=== PATIENT | female | born 1960 | race Caucasian/White ===

== ENCOUNTER → 2021-10-02 | Outpatient (CLI) | payer BC, SELFPAY ==
--- NOTE | 2021-10-02 | FLU_PTH ---
PATIENT: CAT POSEY [facility]: [facility] U#:[id number] AGE/SX: 61/F ROOM: RE10/02/[address]: Dr. Chris Clay MD : 1960 BED: DIS: 10/02/2021 SPEC #: [id number] RECD: 10/02/21 13:34 STATUS: MILADYS REQ #: [id number] ALLY: 10/02/21 00:[address]: Paul Sabillon DEPT: CYTOLOGY RECD BY: Basil Turner ENTERED: 10/02/21 13:34 SP TYPE: Fluid OTHR DR: Dr. Chris Clay MD Tissues: A - Thyroid gland, NOS B - Thyroid gland, NOS Procedures: Special Stain Group II Surgery Specimen Level IV Cytospin Fluid Comments: @ Ordering doctor for SSII edited from to DR.DPEABO Wesley by SHERI at 10/02/21 1406 @ Ordering doctor for SUIV edited from to DR.DPEABO Wesley by SHERI at 10/02/21 1406 @ Ordering doctor for CYSPIN edited from to DR.DPEABO Wesley by SHERI at 10/02/21 1406 @ Submitting doctor edited from to DR.DPEABO Wesley by SHERI at 10/02/21 1406 HEADER OPERATION: Fine needle aspiration left thyroid nodule PRE-OP DIAGNOSIS: Left thyroid nodule TISSUE SUBMITTED: A ? FNA left thyroid fluid, B - FNA left thyroid x12 slides DIAGNOSIS CYTOLOGY A. Fine needle aspiration, left thyroid fluid (cytospin and cell block): Negative for malignant cells. See comment. B. Fine needle aspiration, left thyroid nodule (smears): Adequate for evaluation. Negative, consistent with benign follicular nodule. Chronic inflammation. AM:segundo 10/03/2021 COMMENT A. The specimen contains mostly blood with scattered rare degenerative follicular cells. CYTOLOGY STUDY Slides are reviewed. CYTOLOGY GROSS A - Received is 30 ml of pink cloudy fluid labeled with the patient's name and and designated per the requisition as left thyroid nodule. Submitted for cytology preparation including cell block. B - Received are 12 smears labeled with the patient's name and designated per the requisition as left thyroid nodule. Submitted for staining. / segundo 10/02/21 TC:3 CPT: 72125, 73653, 62114
== END | disposition home or self-care (01) ==
PROVIDERS: Referring Provider Family Medicine; Visit Provider Family Medicine
DX: E04.1 Nontoxic single thyroid nodule (principal)
CPT/HCPCS: 88108; 88305; 88313

== ENCOUNTER → 2022-05-13 | Outpatient (CLI) | payer BC, SELFPAY ==
--- NOTE | 2022-05-13 10:57 | MRI_ITS ---
EXAM: MR HEAD WITHOUT AND WITH INTRAVENOUS CONTRAST, INTERNAL AUDITORY CANAL PROTOCOL CLINICAL INDICATION: LEFT TINNITUS,HEARING LOSS, fullness, pain TECHNIQUE: Multiplanar and multisequence MR images of the internal auditory canal were obtained without and with intravenous contrast. This report was created using [employer] technology. CONTRAST: IV 15ml dotarem COMPARISON: None. FINDINGS: CRANIAL NERVES: Unremarkable. No mass. No abnormal enhancement. COCHLEA AND SEMICIRCULAR CANALS: Unremarkable. CEREBELLOPONTINE ANGLES: Unremarkable. No mass. BRAIN AND EXTRA-AXIAL SPACES: Unremarkable as visualized. No intra- or extra-axial hemorrhage. No intracranial mass or mass effect. There is preservation of the saldana/white matter interface. Posterior fossa structures are unremarkable. Ventricles are appropriate for age. No hydrocephalus. Basal cisterns are patent. No abnormal contrast enhancement. BONES/JOINTS: Unremarkable. No discrete lytic or blastic abnormalities. SINUSES: Unremarkable as visualized. Clear. MASTOID AIR CELLS: Unremarkable as visualized. Clear. ORBITS: Unremarkable as visualized. Both globes, extraocular muscles, optic nerves and retrobulbar fat appear unremarkable. MRI/Brain W/WO Contrast IMPRESSION: Unremarkable MRI of the internal auditory canal. Electronically Signed: Carlos Johnson MD at 12:32 EDT ,
[2022-05-13 11:15] LABS: CREATININE FINGERSTICK < 0.9 mg/dL (0.55-1.02); EGFR FINGERSTICK > 60.0000 mL/min (>60)
== END | disposition home or self-care (01) ==
PROVIDERS: PCP Family Medicine; Referring Provider Otolaryngology; Visit Provider Otolaryngology
DX: H93.12 Tinnitus, left ear (principal); H91.92 Unspecified hearing loss, left ear
CPT/HCPCS: 70553; A9575

== ENCOUNTER 2023-08-11 11:01 | Emergency (ER) | payer BC, SELFPAY ==
[2023-08-11 11:03] VITALS: BP 148/85; PULSE 73; RESP 14; TEMP 36.4; O2SAT 100; BMI 24.7
--- NOTE | 2023-08-11 11:32 | CT_ITS ---
STUDY: CTA CHEST REASON FOR EXAM: Female, 63 years old. COPD. Hypertension. RADIATION DOSAGE (If Supplied By Facility): CTDIvol = ( 9.33 ) mGy, DLP = ( 298.31 ) mGycm TECHNIQUE: The examination was performed with the intravenous administration of IV 100mL Isovue-370. Post-processing of the angiographic images was performed, with multiplanar reformation and 3D reconstruction. Individualized dose optimization techniques were used for this CT. COMPARISON: None. FINDINGS: Normal enhancement of the main pulmonary artery and right and left pulmonary arteries. Normal enhancement of the bilateral peripheral pulmonary arteries. There is no demonstrated pulmonary embolism. Normal thoracic aorta and visualized great vessels. There is no demonstrated aortic dissection. There are calcifications of the coronary arteries. Normal mediastinum. Normal hilar regions. Normal visualized trachea and bronchi. The lungs are well expanded. Increased markings with areas of confluence in both lung apices to just above the apical scarring more prominent on the right side. Normal pleura. Normal chest wall structures. There are degenerative changes of thoracic spine. Fatty infiltration of the liver. CT/CTA Chest W/WO Contrast IMPRESSION: Scarring at both lung apices worse in the right lung apex. Electronically Signed: Luis Lebron MD at 12:59 EDT ,
--- NOTE | 2023-08-11 11:33 | ED.VIS.CHEST ---
HPI History of Present Illness Chief Complaint: Chest Other Narrative Narrative: 63-year-old female extensive long history presents with bilateral chest pain and lung pain all over, that she has had for the last few weeks. She states her symptoms began the end of June, few weeks ago. Her father came home with viral pneumonia, and she caught that. She has been coughing and having pain in her bilateral lungs worse with exertion. She has had past medical history of thoracotomy secondary to pneumothoraces back in the 1970s. She had chronic pain since then. However, she now feels as if there is glue caught between the pleural space of her lungs and her rib cage. Sometimes there is sharp pain of the time its burning pain. It is gotten progressively worse over the last week, and started 3 weeks ago. She denies any symptoms of pneumonia such as fever or chills, she does not really have a cough. No nausea or vomiting, no leg swelling, no diaphoresis. 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 History of migraine History of pleurisy Hyperlipidemia Hypopotassemia Hypothyroidism Meniere disease Rosacea SVT (supraventricular tachycardia) Tietze's disease Type 2 diabetes mellitus without complication Home Medications albuterol sulfate 90 mcg/actuation breath activated powder inhaler (ProAir RespiClick) 2 inh inhalation BID PRN 01/16/22 [History Last Taken Unknown] celecoxib 200 mg capsule (Celebrex) 200 mg PO BID 01/16/22 [History Last Taken Unknown] cholecalciferol (vitamin D3) 25 mcg (1,000 unit) tablet 25 mcg PO DAILY 01/16/22 [History Last Taken Unknown] empagliflozin 10 mg tablet (Jardiance) 10 mg PO QAM 01/16/22 [History Last Taken Unknown] gabapentin 800 mg tablet 800 mg PO TID 01/16/22 [History Last Taken Unknown] levothyroxine 88 mcg tablet 44 mcg PO 2XW 01/16/22 [History Last Taken Unknown] levothyroxine 88 mcg tablet 88 mcg PO SUMOWEFRSA 01/16/22 [History Last Taken Unknown] meclizine 12.5 mg tablet 12.5 mg PO TID PRN 01/16/22 [History Last Taken Unknown] metformin 500 mg tablet,extended release 24 hr 1,000 mg PO BID 01/16/22 [History Last Taken Unknown] knesehutzezw-sjdvxrxw-iofpueq-folic acid 400 mcg-vit K1 20 mcg tablet (One-A-Day Women's 50 Plus) 1 tab PO DAILY 01/16/22 [History Last Taken Unknown] nadolol 20 mg tablet 20 mg PO DAILY 01/16/22 [History Last Taken Unknown] pantoprazole 40 mg tablet,delayed release 40 mg PO BID 01/16/22 [History Last Taken Unknown] potassium chloride 10 mEq tablet,extended release 10 meq PO DAILY 01/16/22 [History Last Taken Unknown] prednisone 20 mg tablet 20 mg PO DAILY 01/16/22 [History Last Taken Unknown] promethazine 25 mg tablet 25 mg PO Q4H PRN 01/16/22 [History Last Taken Unknown] sitagliptin phosphate 100 mg tablet (Januvia) 100 mg PO DAILY 01/16/22 [History Last Taken Unknown] tramadol 50 mg tablet 50 mg PO DAILY PRN 01/16/22 [History Last Taken Unknown] triamterene 37.5 mg-hydrochlorothiazide 25 mg tablet 1 tab PO DAILY 01/16/22 [History Last Taken Unknown] baclofen 10 mg tablet 10 mg PO BID 01/23/22 [History Last Taken Unknown] ferrous gluconate 324 mg (37.5 mg iron) tablet 324 mg PO DAILY 01/23/22 [History Last Taken Unknown] rosuvastatin 40 mg tablet 40 mg PO DAILY 01/23/22 [History Last Taken Unknown] Allergy/AdvReac Type Severity Reaction Status Date / Time atorvastatin Allergy Severe myalgia, Verified 08/11/23 11:02 esophageal spasm lisinopril Allergy Severe swelling, Verified 08/11/23 11:02 ? angioedema diclofenac [From Voltaren] Allergy Intermediate Vomiting Verified 08/11/23 11:02 doxycycline Allergy Intermediate affected Verified 08/11/23 11:02 joints fluticasone Allergy Intermediate leg cramps Verified 08/11/23 11:02 [From Advair Diskus] meloxicam Allergy Intermediate nausea Verified 08/11/23 11:02 metronidazole [From Flagyl] Allergy Intermediate affected Verified 08/11/23 11:02 joints nitrofurantoin Allergy Intermediate hives Verified 08/11/23 11:02 [From Macrobid] pregabalin [From Lyrica] Allergy Intermediate dizziness, Verified 08/11/23 11:02 mental status change rofecoxib [From Vioxx] Allergy Intermediate Swelling Verified 08/11/23 11:02 salmeterol Allergy Intermediate leg cramps Verified 08/11/23 11:02 [From Advair Diskus] tramadol [From Ultram] Allergy Intermediate GI upset Verified 08/11/23 11:02 adhesive Allergy Unknown unknown Verified 08/11/23 11:02 Family History Mother Heart disease CVA (cerebral vascular accident) Hypertension Cancer Lung cancer with mets to brain Father Heart disease Cancer skin Hypertension Grandfather Diabetes Grandmother Cancer Ovarian Surgical History History of bunionectomy History of colonoscopy History of dilatation and curettage History of esophagogastroduodenoscopy History of hand surgery History of lobectomy of thyroid (01/06/08) History of lung surgery (1975) History of partial mastectomy of right breast (02/08/03) History of tonsillectomy (1981) History of tubal ligation Social History Smoking Status: Never smoker alcohol intake: never substance use type: does not use ROS ROS ED ROS Narrative Constitutional: No fever, no chills. HEENT: No sore throat. No neck pain. No loss of vision. No rhinorrhea. Cardiovascular: Bilateral chest pain. No palpitations. No pedal edema. Respiratory: No cough currently, no shortness of breath. Abdominal: No abdominal pain. No nausea. No vomiting. Genitourinary: No dysuria. No hematuria. Musculoskeletal: No myalgias. No arthralgias. Neurologic: No headaches. No dizziness. No lightheadedness. Skin: No rash. No change in color. Psychiatric: No depression. No anxiety. EXAM Physical Exam Narrative Exam Narrative: Afebrile. Vital signs noted. HEENT: Normocephalic. Atraumatic. PERRL, EOMI. Neck soft and supple. No point tenderness or step off. Cardiovascular: Regular rate and rhythm. No murmurs, rubs, or gallops appreciated. Respiratory: No tachypnea. Lungs clear to auscultation bilaterally. Gastrointestinal: Abdomen soft, nontender, with normoactive bowel sounds. No rebound or guarding. Neurological: Awake. Alert. Nonfocal, nonlateralizing. Skin: No rash. Normal color. No pallor. Musculoskeletal: No pedal edema. Full range of motion extremities. Const Vital Signs: 08/11/23 11:03 08/11/23 11:12 08/11/23 11:12 Temperature 97.6 F L Temperature Source Oral Pulse Rate 73 Respiratory Rate 14 Respiratory Effort Normal Non-Labored Normal Non-Labored Respiratory Pattern Normal Blood Pressure 148/85 H Blood Pressure Mean 106 Pulse Ox 100 Oxygen Delivery Method Room Air 08/11/23 11:47 Temperature Temperature Source Pulse Rate Respiratory Rate Respiratory Effort Respiratory Pattern Blood Pressure Blood Pressure Mean Pulse Ox 97 Oxygen Delivery Method Room Air MDM MDM MDM Narrative Medical decision making narrative: Her pulse ox is 100% on room air. She states she had pain in her back as well. In the differential diagnosis is pneumothorax versus aortic dissection versus ACS versus pneumonia. I have lower suspicion for pneumonia as it is bilateral, and she states does not have fever. EKG was obtained and interpreted by myself independently as normal sinus rhythm at 71 bpm without ectopy or acute ST changes. No STEMI. I reviewed her laboratory work and she has slightly elevated white count of 11.9 which I think is nonspecific, hemoglobin normal at 13.3 with hematocrit 41.9. Platelet count normal at 287. BMP shows normal sodium of 137 with potassium 3.7, BUN of 32 and creatinine slightly elevated at 1.39. Glucose is elevated at 226 consistent with diabetes, but she has a normal anion gap of 7, but I am not concerned for diabetic ketoacidosis. High-sensitivity troponin is less than 3 and her pain has been ongoing for days if not weeks. Of significance was the CT of the chest/CTA which was obtained and I reviewed the radiology report which shows bilateral apical lung scarring right greater than left but no pulmonary embolism or acute process. There is normal pleura and no effusion. At this point in time, given her negative CT scan, negative cardiac enzymes, and after administration of morphine, she states she feels the same. I offered to write her a short prescription for narcotic pain medication but she states it is ineffective. I do not feel she requires observation at this time. She will follow-up with her primary care provider. Return instructions to the emergency department were reviewed. Disposition is discharged home in stable condition. History & Record Review Discussion w/independent historian: Patient Additional record(s) reviewed:: Prior outpatient record and Prior ED visit Lab Data Attestation: I reviewed the patient's lab results. Labs: Laboratory Results - last 24 hr 08/11/23 11:25 WBC 11.9 H RBC 4.46 Hgb 13.3 Hct 41.9 MCV 93.9 MCH 29.8 MCHC 31.7 L RDW Std Deviation 49.1 H RDW Coeff of Ra 14.2 Plt Count 287 MPV 10.6 Immature Gran % (Auto) 0.500 Neut % (Auto) 75.8 H Lymph % (Auto) 15.6 L [place] % (Auto) 7.5 Eos % (Auto) 0.3 Baso % (Auto) 0.3 Absolute Neuts (auto) 9.0 H Absolute Lymphs (auto) 1.86 Nucleated RBC % 0 Sodium 137 Potassium 3.7 Chloride 99 Carbon Dioxide 31.0 Anion Gap 7 BUN 32 H Creatinine 1.39 H Estim Creat Clear Calc 41.25 Est GFR (MDRD) Af Amer 49 L Est GFR (MDRD) Non-Af 41 L BUN/Creatinine Ratio 23.0 H Glucose 226 H Calcium 9.6 Troponin I High Sens < 3 L Radiography Diagnostic Testing: Clinical Impression(s) from Imaging Studies Chest CTA 08/11/23 11:32 IMPRESSION: Scarring at both lung apices worse in the right lung apex. Electronically Signed: Luis Lebron MD at 12:59 EDT , Differential Diagnosis Chest pain/SOB: ACS ACS: Positive for no evidence of ACS based on cardiac biomarkers and EKG without ischemia, pneumothorax Reason(s) pneumothorax less likely: Positive for bilateral breath sounds and SIDE GUIDER withhout PTX (CT scan), pneumonia and aortic dissection Reason(s) Aortic dissection less likely:: Positive for normal vascular exam, normal neurological exam, pain not sudden onset and no ripping/tearing pain Discharge Plan Triage Chief Complaint: Chest Other ED Provider: Evnes Daniel Dx/Rx/DC Orders Clinical Impression: Pain aggravated by breathing, Chest pain Instructions: ED Chest Pain, Uncertain Cause, ED Pain, Acute, Uncertain Cause, ED Pleurisy Prescriptions: No Action baclofen 10 mg tablet 10 mg PO BID rosuvastatin 40 mg tablet 40 mg PO DAILY ferrous gluconate 324 mg (37.5 mg iron) tablet 324 mg PO DAILY gabapentin 800 mg tablet 800 mg PO TID tramadol 50 mg tablet 50 mg PO DAILY PRN celecoxib [Celebrex] 200 mg capsule 200 mg PO BID Jardiance 10 mg tablet 10 mg PO QAM potassium chloride 10 mEq tablet extended release 10 meq PO DAILY levothyroxine 88 mcg tablet 44 mcg PO 2XW Rx Instructions: Friday and levothyroxine 88 mcg tablet 88 mcg PO SUMOWEFR pantoprazole 40 mg tablet,delayed release (DR/EC) 40 mg PO BID prednisone 20 mg tablet 20 mg PO DAILY nadolol 20 mg tablet 20 mg PO DAILY Januvia 100 mg tablet 100 mg PO DAILY metformin 500 mg tablet extended release 24 hr 1,000 mg PO BID promethazine 25 mg tablet 25 mg PO Q4H PRN cholecalciferol (vitamin D3) 25 mcg (1,000 unit) tablet 25 mcg PO DAILY meclizine 12.5 mg tablet 12.5 mg PO TID PRN ProAir RespiClick 90 mcg/actuation aerosol powdr breath activated 2 inh inhalation BID PRN One-A-Day Women's 50 Plus 400-20 mcg tablet 1 tab PO DAILY triamterene-hydrochlorothiazid 37.5-25 mg tablet 1 tab PO DAILY Primary Care Provider: Chris Clay Referrals: Chris Clay MD [Primary Care Provider] - As soon as possible Disposition Disposition: Home, Self Care
[2023-08-11 11:47] VITALS: O2SAT 97
[2023-08-11] MEDS: 0.9% Normal Saline (1000mL) 1,000 ML 1000 ML IV (12:03)
[2023-08-11 12:06] LABS: Absolute Lymphocyte Count 1.86 X10^3/uL (0.83-4.51); Basophil# 0.04 X10^3/uL; Basophil% 0.3 % (0-1); Eosinophil# 0.03 X10^3/uL; Eosinophils% 0.3 % (0-5); Hematocrit 41.9 % (37-47); Hemoglobin 13.3 g/dL (12.0-15.0); Lymphocyte # 1.86 X10^3/ul (0.83-4.51); Lymphocyte % 15.6 % (19-41); Mean Corp Hgb Conc 31.7 g/dL (32-36); Mean Corpuscular Hgb 29.8 pg (27.0-32.0); Mean Corpuscular Volume 93.9 fL (81-99); Mean Platelet Vol. 10.6 fl (6.2-12.0); Monocyte# 0.89 X10^3/uL; Monocyte% 7.5 % (0-10); NRBC Flagged by Analyzer 0 % (0-5); Neutrophil # 9.01 X10^3/uL (2.7-7.7); Neutrophil % 75.8 % (47-70); Platelet Count 287 K/mm3 (150-450); RBC Distribution Width CV 14.2 % (11.6-14.6); RBC Distribution Width SD 49.1 fl (35.1-43.9); Red Blood Count 4.46 M/mm3 (4.2-5.4); White Blood Count 11.9 K/mm3 (4.4-11.0)
[2023-08-11 12:23] LABS: Anion Gap 7 (5-15); BUN 32 mg/dL (7-18); Calcium,Total 9.6 mg/dL (8.5-10.1); Chloride 99 mmol/L (98-107); Creatinine, Serum 1.39 mg/dL (0.55-1.02); EST Glomerular Filtration Rate 41 mL/min (>60); Est Glom Filt Rate - Afr Amer 49 mL/min (>60); Estimated Creatinine Clearance 41.25 ml/min; Glucose 226 mg/dL (74-106); Potassium 3.7 mmol/L (3.5-5.1); Sodium Level 137 mmol/L (136-145); Troponin-I HS < 3 pg/mL (3.0-54.0)
[2023-08-11 13:32] VITALS: BP 134/78; PULSE 72; RESP 16; O2SAT 98
== END 2023-08-11 13:33 | disposition home or self-care (01) ==
PROVIDERS: Emergency Provider Emergency Medicine; PCP Family Medicine; Visit Provider Emergency Medicine
DX: R07.1 Chest pain on breathing (principal); J44.9 Chronic obstructive pulmonary disease, unspecified; E11.65 Type 2 diabetes mellitus with hyperglycemia; E78.5 Hyperlipidemia, unspecified; G89.29 Other chronic pain; I10 Essential (primary) hypertension
CPT/HCPCS: 71275; 80048; 84484; 85025; 93005; 96361; 96374; 99285; Q9967; A4216

== ENCOUNTER 2024-08-17 16:17 | Emergency (ER) | payer MEDICARE, SELFPAY ==
[2024-08-17 16:21] VITALS: BP 122/79; PULSE 79; RESP 18; TEMP 35.5; O2SAT 98
[2024-08-17 16:50] VITALS: BP 123/83; PULSE 78; RESP 16; O2SAT 98
--- NOTE | 2024-08-17 17:00 | EKG12_ITS ---
Test Reason : SYNCOPE Blood Pressure : / mmHG Vent. Rate : 078 BPM Atrial Rate : 078 BPM P-R Int : 122 ms QRS Dur : 090 ms QT Int : 386 ms P-R-T Axes : 049 -03 022 degrees QTc Int : 440 ms Normal sinus rhythm Normal ECG Confirmed by SAV BOWLES, RIAN ([id number]), continuity editor ISHA MCCARTHY ([id number]) on 08/19/2024 1:19:02 PM Referred By: TB/AK Confirmed By:RIAN ANG MD
--- NOTE | 2024-08-17 17:09 | CT_ITS ---
STUDY: CT BRAIN WITHOUT CONTRAST REASON FOR EXAM: Female, 64 years old. Trauma RADIATION DOSAGE (If Supplied By Facility): CTDIvol = ( 47.06 ) mGy, DLP = ( 925.62 ) mGycm TECHNIQUE: Transaxial CT imaging of the brain was performed without administration of intravenous contrast material. Individualized dose optimization techniques were used for this CT. COMPARISON: No relevant priors. FINDINGS: Normal soft tissue structures. Normal calvarium. Normal size ventricles and extra-axial spaces for the patient''s age. Normal white matter tracts of the cerebral hemispheres. Normal basal ganglia and thalami. Normal brainstem. Normal cerebellum. There is no intracranial hemorrhage. There are no findings of an acute ischemic infarction. Normal visualized paranasal sinuses. Postsurgical changes of the orbits CT/Brain/Head without Contrast IMPRESSION: Normal unenhanced CT scan of the brain. Electronically Signed: Jose Guadalupe Maier MD at 17:51 EDT ,
--- NOTE | 2024-08-17 17:10 | CT_ITS ---
STUDY: CT CERVICAL SPINE WITHOUT CONTRAST REASON FOR EXAM: Female, 64 years old. Trauma RADIATION DOSAGE (If Supplied By Facility): CTDIvol = ( 16.19 ) mGy, DLP = ( 368.64 ) mGycm TECHNIQUE: High resolution transaxial imaging was performed without contrast material. Sagittal and coronal images were reconstructed. Individualized dose optimization techniques were used for this CT. COMPARISON: None FINDINGS: Normal craniovertebral junction. Normal anterior atlantoaxial articulation. Normal odontoid process. Decreased cervical lordosis possibly secondary to muscle spasm or positioning artifact. Normal vertebral bodies and posterior osseous elements. C2-3: Normal endplates. Normal disc height and morphology. Normal central canal and intervertebral neuroforamina. C3-4: Normal endplates. Normal disc height and morphology. Normal central canal and intervertebral neuroforamina. C4-5: Normal endplates. Normal disc height and morphology. Normal central canal and intervertebral neuroforamina. C5-6: Mild anterior endplate spurring. Normal disc height and morphology. Normal central canal. Moderate left neural foraminal stenosis secondary to bony hypertrophy C6-7: Normal endplates. Normal disc height and morphology. Normal central canal. Moderate to severe left neural foraminal stenosis secondary to bony hypertrophy C7-T1: Normal endplates. Normal disc height and morphology. Normal central canal and intervertebral neuroforamina. Multifocal ossification of the nuchal ligament. CT/Spine Cervical without Contras IMPRESSION: Straightening of the normal curvature and mild spondylosis most severe at C5-6 and C6-7 No acute fracture or subluxation Electronically Signed: Jose Guadalupe Maier MD at 17:53 EDT ,
--- NOTE | 2024-08-17 17:11 | EDS_ITS ---
HPI History of Present Illness Chief Complaint: Syncope Narrative Narrative: Chief complaint and HPI: Syncope. 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 Patient states last Friday while walking at the mall she felt slightly lightheaded and had to sit down. Patient states that this is not uncommon for her with her M?ni?re's disease especially with the change in weather. She states on Friday she walked a couple blocks in which she had increased shortness of breath. She states she thought it was her asthma so she took her inhaler. She states while she was in her backyard talking to family, she became lightheaded, and reportedly had a syncopal episode. It was reported that she hit her head. No seizure-like activity. No postictal state. No bowel or bladder incontinence. Patient saw her developer analyst today because she was having left ankle pain since the syncopal episode in which she was diagnosed with a bimalleolar ankle fracture and placed in a boot. Plan is for surgery soon. Patient had a regular follow-up with her PCP who referred her to the ED for further workup. Patient states since the fall she has been having fogginess in her head which she cannot quite explain. Denies any chest pain. Still having intermittent shortness of breath. Denies lightheadedness currently. Denies any abdominal pain nausea, vomiting, dysuria, diarrhea. States she has been eating and drinking well. Patient denies any aphasia, dysarthria, vision changes, numbness/tingling, neurological deficit, weakness, gait disturbance. Review of systems: See HPI Medications: As listed on the chart Allergies: As listed on the chart PFSH: Per chart Vital signs: As listed on the chart. Reviewed. Physical exam: Gen: A&O x3, NAD Head: Normocephalic, atraumatic Eyes: No sclera icterus, conjunctiva clear, PERRL, EOMI ENT: TMs clear BL, moist mucous membranes, no swelling/lacerations/blood in the mouth or the nares, No nasal septal hematoma, no facial tenderness Neck: Trachea midline, No JVD, Nontender, no carotid bruit CV: RRR, no murmurs, no chest wall TTP Resp: Lungs CTA BL, no w/r/c GI: Abd soft, non-distended, non-tender, no r/r/g Musc: Full ROM, no deformity, no spinal TTP, no cole step-offs, left lower ex tremity in boot Skin: Warm, dry, intact Neuro: Alert, oriented, grossly intact, sensation intact, GCS 15 Psych: Cooperative, appropriate mood and affect [facility] Medical History Asthma COPD (chronic obstructive pulmonary disease) DDD (degenerative disc disease), lumbar Essential hypertension 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 History of migraine History of pleurisy Hyperlipidemia Hypopotassemia Hypothyroidism Meniere disease Rosacea SVT (supraventricular tachycardia) Tietze's disease Type 2 diabetes mellitus without complication Home Medications ?Medication ?Instructions ?Recorded ?Last Taken ?Type albuterol sulfate 90 mcg/actuation 2 inh inhalation BID PRN 01/16/22 Unknown History breath activated powder inhaler (ProAir RespiClick) celecoxib 200 mg capsule (Celebrex) 200 mg PO BID 01/16/22 Unknown History cholecalciferol (vitamin D3) 25 25 mcg PO DAILY 01/16/22 Unknown History mcg (1,000 unit) tablet empagliflozin 10 mg tablet 10 mg PO QAM 01/16/22 Unknown History (Jardiance) gabapentin 800 mg tablet 800 mg PO TID 01/16/22 Unknown History levothyroxine 88 mcg tablet 44 mcg PO 2XW 01/16/22 Unknown History levothyroxine 88 mcg tablet 88 mcg PO SUMOWEFRSA 01/16/22 Unknown History meclizine 12.5 mg tablet 12.5 mg PO TID PRN 01/16/22 Unknown History metformin 500 mg tablet,extended 1,000 mg PO BID 01/16/22 Unknown History release 24 hr llcibpjzhdib-zzmxizod-sopuvhz-folic 1 tab PO DAILY 01/16/22 Unknown History acid 400 mcg-vit K1 20 mcg tablet (One-A-Day Women's 50 Plus) nadolol 20 mg tablet 20 mg PO DAILY 01/16/22 Unknown History pantoprazole 40 mg tablet,delayed 40 mg PO BID 01/16/22 Unknown History release potassium chloride 10 mEq 10 meq PO DAILY 01/16/22 Unknown History tablet,extended release prednisone 20 mg tablet 20 mg PO DAILY 01/16/22 Unknown History promethazine 25 mg tablet 25 mg PO Q4H PRN 01/16/22 Unknown History sitagliptin phosphate 100 mg 100 mg PO DAILY 01/16/22 Unknown History tablet (Januvia) tramadol 50 mg tablet 50 mg PO DAILY PRN 01/16/22 Unknown History triamterene 37.5 1 tab PO DAILY 01/16/22 Unknown History mg-hydrochlorothiazide 25 mg tablet baclofen 10 mg tablet 10 mg PO BID 01/23/22 Unknown History ferrous gluconate 324 mg (37.5 mg 324 mg PO DAILY 01/23/22 Unknown History iron) tablet rosuvastatin 40 mg tablet 40 mg PO DAILY 01/23/22 Unknown History Allergy/AdvReac Type Severity Reaction Status Date / Time atorvastatin Allergy Severe myalgia, Verified 08/17/24 16:21 esophageal spasm lisinopril Allergy Severe swelling, Verified 08/17/24 16:21 ? angioedema diclofenac (From Voltaren) Allergy Intermediate Vomiting Verified 08/17/24 16:21 doxycycline Allergy Intermediate affected Verified 08/17/24 16:21 joints fluticasone (From Advair Allergy Intermediate leg cramps Verified 08/17/24 16:21 Diskus) meloxicam Allergy Intermediate nausea Verified 08/17/24 16:21 metronidazole (From Flagyl) Allergy Intermediate affected Verified 08/17/24 16:21 joints nitrofurantoin (From Allergy Intermediate hives Verified 08/17/24 16:21 Macrobid) pregabalin (From Lyrica) Allergy Intermediate dizziness, Verified 08/17/24 16:21 mental status change rofecoxib (From Vioxx) Allergy Intermediate Swelling Verified 08/17/24 16:21 salmeterol (From Advair Allergy Intermediate leg cramps Verified 08/17/24 16:21 Diskus) tramadol (From Ultram) Allergy Intermediate GI upset Verified 08/17/24 16:21 adhesive Allergy Unknown unknown Verified 08/17/24 16:21 Family History Mother Heart disease CVA (cerebral vascular accident) Hypertension Cancer Lung cancer with mets to brain Father Heart disease Cancer skin Hypertension Grandfather Diabetes Grandmother Cancer Ovarian Surgical History History of bunionectomy History of colonoscopy History of dilatation and curettage History of esophagogastroduodenoscopy History of hand surgery History of lobectomy of thyroid (01/06/08) History of lung surgery (1975) History of partial mastectomy of right breast (02/08/03) History of tonsillectomy (1981) History of tubal ligation Social History Smoking Status: Never smoker alcohol intake: never substance use type: does not use EXAM Physical Exam Const Vital Signs: 08/17/24 16:21 08/17/24 16:50 08/17/24 16:52 Temperature 96 F L Temperature Source Temporal Pulse Rate 79 78 Respiratory Rate 18 16 Respiratory Effort Normal Non-Labored Blood Pressure 122/79 H 123/83 H Blood Pressure Mean 93 96 Pulse Ox 98 98 Oxygen Delivery Method Room Air Room Air 08/17/24 18:24 08/17/24 20:04 08/17/24 20:08 Temperature Temperature Source Pulse Rate 73 72 Respiratory Rate 16 Respiratory Effort Blood Pressure 116/68 116/68 128/79 H Blood Pressure Mean 84 84 95 Pulse Ox 98 Oxygen Delivery Method Room Air 08/17/24 20:39 Temperature 97.2 F L Temperature Source Pulse Rate 75 Respiratory Rate 15 Respiratory Effort Blood Pressure 121/79 H Blood Pressure Mean 93 Pulse Ox 96 Oxygen Delivery Method MDM MDM MDM Narrative Medical decision making narrative: 64-year-old female with history of M?ni?re's disease and asthma presents for evaluation of intermittent lightheadedness with syncopal episode and intermittent shortness of breath. Physical exam unremarkable. Currently asymptomatic. Differential diagnosis includes but is not limited to M?ni?re's disease, electrolyte abnormality, thyroid disease, ACS, UTI, anemia, PE, intracranial abnormality or head bleed, fracture. Not a stroke presentation. CBC without leukocytosis or anemia. BMP with mild renal insufficiency of 1.08, BUN 27. These are both down from 2022. Magnesium level normal. Troponin unremarkable x 2. TSH normal. BNP normal. UA negative for UTI. D-dimer elevated at 1.24. This could be secondary to patient's known fracture however cannot rule out PE. CTA chest ordered to assess for PE. NS bolus ordered. CT head without any traumatic injury or acute intracranial abnormality. CT neck shows straightening of the normal curvature and mild spondylosis. No acute fracture or subluxation. CTA chest shows small multilobulated nodule density in the left upper lobe with minor bilateral interstitial thickening. This will need to be worked up further outpatient. No evidence of PE. At this point in time, there is no clear etiology for patient's symptoms. Her physical exam is unremarkable. She is currently asymptomatic. Patient was updated on all her results. She was educated that she needs to follow-up for this nodule in the left upper lobe. She confirmed understanding. Patient was educated to follow- up with her PCP as well as clearance for surgery. She confirmed understanding. EKG: Interpreted by me/EM physician: EKG shows normal sinus rhythm with a heart rate of 78, no acute ischemic changes Diagnostic: Interpreted by me/EM physician: No pneumonia, effusion, pneumothorax, cardiomegaly Impression: 1. Episodic lightheadedness with history of M?ni?re's disease 2. Episodic shortness of breath with history of asthma 3. Syncopal episode 4. Left ankle fracture 5. Incidental left upper lobe nodule Lab Data Labs: Laboratory Results - last 24 hr 08/17/24 08/17/24 16:54 20:05 WBC 10.1 RBC 4.55 Hgb 13.8 Hct 43.2 MCV 94.9 MCH 30.3 MCHC 31.9 L RDW Std Deviation 49.1 H RDW Coeff of Ra 14.2 Plt Count 329 MPV 10.1 Immature Gran % (Auto) 0.300 Neut % (Auto) 60.9 Lymph % (Auto) 27.1 [place] % (Auto) 8.5 Eos % (Auto) 2.4 Baso % (Auto) 0.8 Absolute Neuts (auto) 6.2 Absolute Lymphs (auto) 2.75 Nucleated RBC % 0 D-Dimer Quant (PE/DVT) 1.24 H* Sodium 136 Potassium 3.6 Chloride 98 Carbon Dioxide 32.0 Anion Gap 6 BUN 27 H Creatinine 1.08 H Estim Creat Clear Calc 57.73 Est GFR (MDRD) Af Amer 65 Est GFR (MDRD) Non-Af 54 L BUN/Creatinine Ratio 25.0 H Glucose 137 H Calcium 9.8 Magnesium 1.6 Troponin I High Sens 4 4 B-Natriuretic Peptide 19.3 TSH 2.780 Urine Color Yellow Urine Clarity Clear Urine pH 6.0 Ur Specific [place] 1.005 Urine Protein Negative Urine Glucose (UA) Normal Urine Ketones Negative Urine Occult Blood Negative Urine Nitrite Negative Urine Bilirubin Negative Urine Urobilinogen Normal Ur Leukocyte Esterase 25 H Urine RBC 0-5 SEEN Urine WBC 0-5 SEEN Ur Squamous Epith Cells 0-5 SEEN Ur Transition Epith Cell 0-5 SEEN Urine Bacteria 0 SEEN Urine Mucus 0 SEEN Radiography Diagnostic Testing: Clinical Impression(s) from Imaging Studies Brain CT 08/17/24 17:09 IMPRESSION: Normal unenhanced CT scan of the brain. Electronically Signed: Jose Guadalupe Maier MD at 17:51 EDT , Cervical Spine CT 08/17/24 17:10 IMPRESSION: Straightening of the normal curvature and mild spondylosis most severe at C5-6 and C6-7 No acute fracture or subluxation Electronically Signed: Jose Guadalupe Maier MD at 17:53 EDT , Chest X-Ray 08/17/24 17:28 IMPRESSION: No acute cardiopulmonary pathology Electronically Signed: Jose Guadalupe Maier MD at 17:56 EDT , Chest CTA 08/17/24 19:13 IMPRESSION: Small multilobulated nodular density in left upper lobe which is new finding since previous study of uncertain etiology. Recommend clinical correlation and follow-up imaging utilizing Fleischner Society criteria. ASHD and minor bilateral interstitial thickening. No evidence for pulmonary embolus Electronically Signed: Jose Guadalupe Maier MD at 20:30 EDT , Discharge Plan Triage Chief Complaint: Syncope ED Provider: Matheus Harding Dx/Rx/DC Orders Clinical Impression: Intermittent lightheadedness Instructions: ED Dizziness, Uncertain Cause, ED Fainting, Uncertain Cause Prescriptions: No Action baclofen 10 mg tablet 10 mg PO BID rosuvastatin 40 mg tablet 40 mg PO DAILY ferrous gluconate 324 mg (37.5 mg iron) tablet 324 mg PO DAILY gabapentin 800 mg tablet 800 mg PO TID tramadol 50 mg tablet 50 mg PO DAILY PRN celecoxib [Celebrex] 200 mg capsule 200 mg PO BID Jardiance 10 mg tablet 10 mg PO QAM potassium chloride 10 mEq tablet extended release 10 meq PO DAILY levothyroxine 88 mcg tablet 44 mcg PO 2XW Rx Instructions: Friday and levothyroxine 88 mcg tablet 88 mcg PO WE pantoprazole 40 mg tablet,delayed release (DR/EC) 40 mg PO BID prednisone 20 mg tablet 20 mg PO DAILY nadolol 20 mg tablet 20 mg PO DAILY Januvia 100 mg tablet 100 mg PO DAILY metformin 500 mg tablet extended release 24 hr 1,000 mg PO BID promethazine 25 mg tablet 25 mg PO Q4H PRN cholecalciferol (vitamin D3) 25 mcg (1,000 unit) tablet 25 mcg PO DAILY meclizine 12.5 mg tablet 12.5 mg PO TID PRN ProAir RespiClick 90 mcg/actuation aerosol powdr breath activated 2 inh inhalation BID PRN One-A-Day Women's 50 Plus 400-20 mcg tablet 1 tab PO DAILY triamterene-hydrochlorothiazid 37.5-25 mg tablet 1 tab PO DAILY Primary Care Provider: Chris Clay Referrals: Chris Clay MD [Primary Care Provider] - 3-5 Days Activity Restrictions/Additional Instructions: Return back to the ED if symptoms return or worsen or recur. Small multilobulated nodular density in left upper lobe which is new finding since previous study of uncertain etiology. Follow-up with your primary care physician for this. Print Language: Grenadian Disposition Disposition: Home, Self Care Discharge Date/Time: 08/17/24 20:50
[2024-08-17 17:14] VITALS: BMI 26.9
[2024-08-17] MEDS: 0.9% Normal Saline (1000mL) 1,000 ML 999 ML IV (17:17)
[2024-08-17 17:22] LABS: Absolute Lymphocyte Count 2.75 X10^3/uL (0.83-4.51); Absolute Neutrophil Count 6.2 X10^3/uL (2.0-7.7); Basophil# 0.08 X10^3/uL; Basophil% 0.8 % (0-1); Eosinophil# 0.24 X10^3/uL; Eosinophils% 2.4 % (0-5); Hematocrit 43.2 % (37-47); Hemoglobin 13.8 g/dL (12.0-15.0); Lymphocyte # 2.75 X10^3/ul (0.83-4.51); Lymphocyte % 27.1 % (19-41); Mean Corp Hgb Conc 31.9 g/dL (32-36); Mean Corpuscular Hgb 30.3 pg (27.0-32.0); Mean Corpuscular Volume 94.9 fL (81-99); Mean Platelet Vol. 10.1 fl (6.2-12.0); Monocyte# 0.86 X10^3/uL; Monocyte% 8.5 % (0-10); NRBC Flagged by Analyzer 0 % (0-5); Neutrophil # 6.18 X10^3/uL (2.7-7.7); Neutrophil % 60.9 % (47-70); Platelet Count 329 K/mm3 (150-450); RBC Distribution Width CV 14.2 % (11.6-14.6); RBC Distribution Width SD 49.1 fl (35.1-43.9); Red Blood Count 4.55 M/mm3 (4.2-5.4); White Blood Count 10.1 K/mm3 (4.4-11.0)
--- NOTE | 2024-08-17 17:28 | RAD_ITS ---
STUDY: X-RAY CHEST REASON FOR EXAM: Female, 64 years old. SOB TECHNIQUE: PA and lateral COMPARISON: December 22, 2011 FINDINGS: The lungs are clear and expanded. There is no demonstrated pleural abnormality. Normal size heart. Normal mediastinum and refugio. Normal visualized pulmonary arteries. Normal visualized aortic arch and descending thoracic aorta. Dorsal spine demonstrates mild spondylosis. Normal visualized ribs, clavicles, and shoulders. Postop change status post right mastectomy and axillary lymphadenectomy There is no demonstrated abnormality of the visualized soft tissue structures of the upper abdomen. RAD/Chest PA and Lateral IMPRESSION: No acute cardiopulmonary pathology Electronically Signed: Jose Guadalupe Maier MD at 17:56 EDT ,
[2024-08-17 17:44] LABS: D-Dimer Quantitative (DVT/PE) 1.24 FEU/ug/m (0.27-0.49)
[2024-08-17 17:45] LABS: Anion Gap 6 (5-15); BUN 27 mg/dL (7-18); Calcium,Total 9.8 mg/dL (8.5-10.1); Chloride 98 mmol/L (98-107); Creatinine, Serum 1.08 mg/dL (0.55-1.02); EST Glomerular Filtration Rate 54 mL/min (>60); Est Glom Filt Rate - Afr Amer 65 mL/min (>60); Estimated Creatinine Clearance 57.73 ml/min; Glucose 137 mg/dL (74-106); Magnesium 1.6 mg/dL (1.6-2.6); Potassium 3.6 mmol/L (3.5-5.1); Sodium Level 136 mmol/L (136-145); Troponin-I HS (w/2H Reflex) 4 pg/mL (3.0-54.0)
[2024-08-17 18:24] VITALS: BP 116/68; PULSE 73; RESP 16; O2SAT 98
--- NOTE | 2024-08-17 19:13 | CT_ITS ---
STUDY: CTA CHEST REASON FOR EXAM: Female, 64 years old. assess for PE RADIATION DOSAGE (If Supplied By Facility): CTDIvol = ( 10.92 ) mGy, DLP = ( 339.01 ) mGycm TECHNIQUE: The examination was performed with the intravenous administration of IV 75mL Isovue-370. Post-processing of the angiographic images was performed, with multiplanar reformation and 3D reconstruction. Individualized dose optimization techniques were used for this CT. COMPARISON: August 11, 2023 FINDINGS: Normal enhancement of the main pulmonary artery and right and left pulmonary arteries. Normal enhancement of the bilateral peripheral pulmonary arteries. There is no demonstrated pulmonary embolism. Mild atherosclerotic changes of the aorta without evidence for aneurysm. There is no demonstrated aortic dissection. Heart size is normal. There is calcification of the coronary arteries Normal mediastinum. Normal hilar regions. Normal visualized trachea and bronchi. The lungs are well expanded. Small multilobulated nodular in the left upper lobe measuring approximately 1.3 x 0.8 cm of uncertain significance. Minor nonspecific interstitial thickening in left upper and right lower lobes Pleural thickening in the bilateral pulmonary apices without pleural effusion or pneumothorax Normal chest wall structures. Thoracic spine demonstrates degenerative change. Mild nonspecific fatty infiltrated liver CT/CTA Chest W/WO Contrast IMPRESSION: Small multilobulated nodular density in left upper lobe which is new finding since previous study of uncertain etiology. Recommend clinical correlation and follow-up imaging utilizing Fleischner Society criteria. ASHD and minor bilateral interstitial thickening. No evidence for pulmonary embolus Electronically Signed: Jose Guadalupe Maier MD at 20:30 EDT ,
[2024-08-17 19:17] LABS: Reflex Troponin-HS? (from REC) Y
[2024-08-17 20:04] VITALS: BP 116/68
[2024-08-17 20:08] VITALS: BP 128/79; PULSE 72
[2024-08-17 20:13] LABS: Bacteria 0 SEEN /hpf (None Seen); Mucous, Urine 0 SEEN /hpf (<or=2+)
[2024-08-17 20:17] LABS: Color, Urine Yellow (Yellow); Glucose, Dipstick Normal (Normal); Ketone-Dipstick Negative (Negative); Leukocyte Esterase-Dipstick 25 /ul (Negative); Nitrite-Dipstick Negative (Negative); Occult Blood-Urine Negative /ul (Negative); Protein-Dipstick Negative (Negative); Specific Gravity, Urine 1.005 (1.002-1.030); Urine Bilirubin Dipstick Negative (Negative); Urine Clarity Clear (Clear); Urine Urobilinogen Normal (Normal)
[2024-08-17 20:25] LABS: Red Blood Cells-Urine 0-5 SEEN /hpf (0-5); Squamous Epithelial Cells - UA 0-5 SEEN /hpf (5-10); Transitional Epithelial - Ur 0-5 SEEN /hpf (0-5); White Blood Cells 0-5 SEEN /hpf (0-5)
[2024-08-17 20:39] VITALS: BP 121/79; PULSE 75; RESP 15; TEMP 36.2; O2SAT 96
[2024-08-17 20:45] LABS: Troponin-I HS 4 pg/mL (3.0-54.0)
[2024-08-17 23:08] LABS: BNP,B-Type NATRIURETIC PEPTIDE 19.3 pg/mL (0-100)
== END 2024-08-17 20:50 | disposition home or self-care (01) ==
PROVIDERS: Emergency Provider Surgery; PCP Family Medicine; Visit Provider Surgery
DX: R55 Syncope and collapse (principal); J44.9 Chronic obstructive pulmonary disease, unspecified; E11.9 Type 2 diabetes mellitus without complications; S82.842A Displaced bimalleolar fracture of left lower leg, initial encounter for closed fracture; E78.5 Hyperlipidemia, unspecified; I10 Essential (primary) hypertension; R06.02 Shortness of breath; W19.XXXA Unspecified fall, initial encounter; H81.09 Meniere's disease, unspecified ear; M79.661 Pain in right lower leg; M79.662 Pain in left lower leg
CPT/HCPCS: 70450; 71046; 71275; 72125; 80048; 81001; 83735; 83880; 84443; 84484; 85025; 85379; 93005; 93970; 96360; 96361; 99284; Q9967; A4216

== ENCOUNTER → 2024-08-17 | Outpatient (CLI) | payer MEDICARE, SELFPAY ==
--- NOTE | 2024-08-17 13:47 | VDLE_ITS ---
Reason For Study: Lt Calf Pain RIGHT LEFT GSV is normal. GSV is normal. CFV is compressible, spontaneous, phasic, CFV is compressible, spontaneous, phasic, competent and demonstrates normal competent, and demonstrates normal augmentation. augmentation. FV is compressible, spontaneous, phasic, FV is compressible, spontaneous, phasic, competent and demonstrates normal competent and demonstrates normal augmentation. augmentation. POP V is compressible, spontaneous, phasic, POP V is compressible, spontaneous, phasic, competent and demonstrates normal competent and demonstrates normal augmentation. augmentation. T/P Trunk is compressible. T/P Trunk is compressible. PTV is compressible. PTV is compressible. RT PerV is compressible. LT PerV is compressible. Procedure This is a venous duplex using B-mode, color flow and spectral Doppler. Exam performed in department. The exam was diagnostic. A preliminary report was called and/or faxed to Dr Pino / [facility]. VL/Venous Duplex US - [place] Extrem Interpretation Summary Deep veins of the lower extremities are bilaterally patent and compressible seg mentally. There is no evidence of deep vein thrombosis on either side. Valvular competence appears in tact within the proximal deep venous systems bilaterally. The great saphenous veins appear bila terally patent and compressible segmentally. Ordering Physician: Jose Guadalupe Pino Referring Physician: Chris Clay Performed By: Wiliam Steele, RVT
== END | disposition home or self-care (01) ==
PROVIDERS: PCP Family Medicine; Referring Provider Podiatrist; Visit Provider Podiatrist
DX: M79.662 Pain in left lower leg (principal); M79.661 Pain in right lower leg
CPT/HCPCS: 93970

== ENCOUNTER 2024-08-23 08:14 | Inpatient (IN) | payer MEDICARE, SELFPAY ==
[2024-08-23 08:32] VITALS: BMI 25.0
[2024-08-23 08:48] VITALS: BP 109/72; PULSE 71; RESP 18; TEMP 36.2; O2SAT 98
--- NOTE | 2024-08-23 09:27 | CT_ITS ---
STUDY: CT LEFT ANKLE WITHOUT CONTRAST REASON FOR EXAM: Female, 64 years old. Left ankle fracture -- with 3D reconstruction RADIATION DOSAGE (If Supplied By Facility): CTDIvol = ( 15.35 ) mGy, DLP = ( 445.87 ) mGycm TECHNIQUE: Thin section transaxial imaging of the left ankle was obtained, with sagittal and coronal reconstructed images. Three-D reconstructed images were also obtained. Individualized dose optimization techniques were used for this CT. COMPARISON: None. FINDINGS: There is a fracture of the anterior aspect of the medial malleolus of the distal tibia. There is also a nondisplaced fracture of the posterior malleolus of the distal tibia. There is an oblique fracture of the distal fibula, with 1 mm posterolateral displacement. Normal talar dome. Intact talus, calcaneus, navicular and cuboid tarsal bones. There is a small plantar calcaneal spur. Normal subtalar, talonavicular and calcaneocuboid articulations. Normal navicular-cuneiform, cuneiform tarsal bones and intercuneiform articulations. There is mild degenerative arthrosis at the first tarsometatarsal joint with small foci of subchondral cyst formation. Normal second through fifth tarsometatarsal articulations and visualized metatarsi. There is soft tissue swelling around the ankle and along the dorsum of the foot. CT/Extremity Lower without Contra IMPRESSION: Trimalleolar fracture of the left ankle. Mild degenerative arthrosis at the first tarsometatarsal joint. Soft tissue swelling around the ankle and along the dorsum of the foot. Electronically Signed: Dylan Novoa MD at 10:27 EDT ,
--- NOTE | 2024-08-23 09:32 | PCM.HP.STD ---
[facility] - General General Date of Admission: 08/23/24 Chief Complaint: Left ankle fracture [facility] Narrative CAT POSEY, is a 64 F who presents to be admitted due to left ankle fracture and need for further workup. She had a syncope episode and fell on 08/13/2024 and injured left ankle during this episode. She presented to my office last week, and was found to have a significant ankle fracture. She saw her PCP Dr. Clay later that day and was sent to ER for further evaluation of syncope episode. Patient would benefit from surgical intervention on left ankle fracture as there is some displacement, and unstable. Patient's PCP Dr. Clay has not cleared patient for surgery and has recommended cardiac workup. Patient has been admitted for further workup and management. [facility] Medical History (Updated 08/23/24 @ 10:[address] Jose Guadalupe Pino, DPM) Post-menopausal Syncope High cholesterol History of stress test Cancer Hypothyroidism Diabetes Chronic pain Osteoporosis Kidney stones GI bleed GERD (gastroesophageal reflux disease) COPD (chronic obstructive pulmonary disease) Irregular heart beat Migraines Hypopotassemia Hypothyroidism SVT (supraventricular tachycardia) Essential hypertension Hyperlipidemia Type 2 diabetes mellitus without complication COPD (chronic obstructive pulmonary disease) History of malignant neoplasm of right breast Meniere disease History of migraine History of pleurisy Tietze's disease History of Lindsey thyroiditis Rosacea DDD (degenerative disc disease), lumbar Asthma Home Medications ?Medication ?Instructions ?Recorded ?Last Taken ?Type albuterol sulfate 90 mcg/actuation 2 inh inhalation BID PRN sob 01/16/22 Unknown History breath activated powder inhaler (ProAir RespiClick) cholecalciferol (vitamin D3) 25 25 mcg PO DAILY 01/16/22 Unknown History mcg (1,000 unit) tablet gabapentin 800 mg tablet 800 mg PO BID 01/16/22 Unknown History levothyroxine 88 mcg tablet 88 mcg PO DAILY thyroid 01/16/22 Unknown History meclizine 12.5 mg tablet 12.5 mg PO TID PRN dizziness 01/16/22 Unknown History metformin 500 mg tablet,extended 1,000 mg PO BID 01/16/22 Unknown History release 24 hr jchhoowjzbdw-rhbfeqda-xsadhat-folic 1 tab PO DAILY 01/16/22 Unknown History acid 400 mcg-vit K1 20 mcg tablet (One-A-Day Women's 50 Plus) nadolol 20 mg tablet 20 mg PO DAILY 01/16/22 Unknown History pantoprazole 40 mg tablet,delayed 40 mg PO BID 01/16/22 Unknown History release potassium chloride 10 mEq 10 meq PO BID supplement 01/16/22 Unknown History tablet,extended release promethazine 25 mg tablet 25 mg PO Q4H PRN nausea 01/16/22 Unknown History tramadol 50 mg tablet 50 mg PO DAILY PRN sleep 01/16/22 Unknown History triamterene 37.5 1 tab PO DAILY 01/16/22 Unknown History mg-hydrochlorothiazide 25 mg tablet baclofen 10 mg tablet 20 mg PO BID pain 01/23/22 Unknown History rosuvastatin 40 mg tablet 5 mg PO DAILY cholesterol 01/23/22 Unknown History dulaglutide 3 mg/0.5 mL 4.5 mg subcut QWEEK diabeties 08/23/24 Unknown [facility] tiotropium bromide 2.5 2 puff inhalation DAILY 08/23/24 Unknown History mcg/actuation mist for inhalation (Spiriva Respimat) Allergy/AdvReac Type Severity Reaction Status Date / Time atorvastatin Allergy Severe myalgia, Verified 08/17/24 16:21 esophageal spasm lisinopril Allergy Severe swelling, Verified 08/17/24 16:21 ? angioedema diclofenac (From Voltaren) Allergy Intermediate Vomiting Verified 08/23/24 08:52 doxycycline Allergy Intermediate affected Verified 08/23/24 08:52 joints fluticasone (From Advair Allergy Intermediate leg cramps Verified 08/23/24 08:52 Diskus) meloxicam Allergy Intermediate nausea Verified 08/23/24 08:52 metronidazole (From Flagyl) Allergy Intermediate affected Verified 08/23/24 08:52 joints nitrofurantoin (From Allergy Intermediate hives Verified 08/23/24 08:52 Macrobid) pregabalin (From Lyrica) Allergy Intermediate dizziness, Verified 08/23/24 08:52 mental status change rofecoxib (From Vioxx) Allergy Intermediate Swelling Verified 08/23/24 08:52 salmeterol (From Advair Allergy Intermediate leg cramps Verified 08/23/24 08:52 Diskus) tramadol (From Ultram) Allergy Intermediate GI upset Verified 08/23/24 08:52 adhesive Allergy Unknown unknown Verified 08/23/24 08:52 Family History Mother Heart disease CVA (cerebral vascular accident) Hypertension Cancer Lung cancer with mets to brain Father Heart disease Cancer skin Hypertension Grandfather Diabetes Grandmother Cancer Ovarian Surgical History History of lobectomy of thyroid (01/06/08) History of partial mastectomy of right breast (02/08/03) History of lung surgery (1975) History of tubal ligation History of dilatation and curettage History of tonsillectomy (1981) History of hand surgery History of esophagogastroduodenoscopy History of bunionectomy History of colonoscopy Social History Smoking Status: Never smoker alcohol intake: never substance use type: does not use Vital Signs Vital Signs Vital Signs: 08/23/24 08:48 Temperature 97.2 F L Temperature Source Oral Pulse Rate 71 Respiratory Rate 18 Blood Pressure 109/72 Blood Pressure Mean 84 Blood Pressure Source Monitor Blood Pressure Position Semi-Fowlers Blood Pressure Location Left Arm Pulse Ox 98 Oxygen Delivery Method Room Air Weight Weight: 74.843 kg Body Mass Index (BMI) 25.0 Physical Exam Narrative Left ankle is wrapped with soft cast with pain controlled and edema improved, no evidence of ischemia to left foot or ankle, and otherwise no acute changes, no edema right LE Const alert, oriented x3 and no apparent distress Results Lab / Micro Data 08/23/24 09:38 08/23/24 09:38 Assessment & Plan Assessment/Plan (1) Trimalleolar fracture of left ankle: PLAN: Plan Patient has been admitted for further workup and management. Hospital medicine has been consulted CT scan of left ankle has been ordered No weightbearing left foot, keep left foot elevated, keep left foot/ankle protected in CAM boot DVT Prophylaxis: SCDs Possible surgical intervention on left ankle (ORIF) pending further workup
[2024-08-23 09:49] LABS: Absolute Lymphocyte Count 1.27 X10^3/uL (0.83-4.51); Absolute Neutrophil Count 5.9 X10^3/uL (2.0-7.7); Basophil# 0.05 X10^3/uL; Basophil% 0.6 % (0-1); Eosinophil# 0.16 X10^3/uL; Hematocrit 40.5 % (37-47); Hemoglobin 12.9 g/dL (12.0-15.0); Lymphocyte # 1.27 X10^3/ul (0.83-4.51); Lymphocyte % 15.6 % (19-41); Mean Corp Hgb Conc 31.9 g/dL (32-36); Mean Corpuscular Hgb 30.6 pg (27.0-32.0); Mean Corpuscular Volume 96.2 fL (81-99); Mean Platelet Vol. 9.3 fl (6.2-12.0); Monocyte# 0.73 X10^3/uL; NRBC Flagged by Analyzer 0 % (0-5); Neutrophil # 5.88 X10^3/uL (2.7-7.7); Neutrophil % 72.4 % (47-70); Platelet Count 266 K/mm3 (150-450); RBC Distribution Width CV 14.4 % (11.6-14.6); RBC Distribution Width SD 49.9 fl (35.1-43.9); Red Blood Count 4.21 M/mm3 (4.2-5.4); White Blood Count 8.1 K/mm3 (4.4-11.0)
[2024-08-23 10:19] LABS: AST(SGOT) 18 U/L (15-37); Alanine Aminotransfer ALT/SGPT 26 U/L (13-56); Albumin, Serum 3.7 g/dL (3.2-5.0); Alkaline Phosphatase 77 U/L (45-117); Anion Gap 9 (5-15); BUN 23 mg/dL (7-18); BUN/Creat Ratio 19.5 RATIO (10-20); Calcium,Total 10.1 mg/dL (8.5-10.1); Chloride 103 mmol/L (98-107); Creatinine, Serum 1.18 mg/dL (0.55-1.02); EST Glomerular Filtration Rate 49 mL/min (>60); Est Glom Filt Rate - Afr Amer 59 mL/min (>60); Estimated Creatinine Clearance 47.95 ml/min; Globulin 3.7 g/dL (2.2-4.2); Glucose 123 mg/dL (74-106); Potassium 3.5 mmol/L (3.5-5.1); Protein, Total 7.4 g/dL (6.4-8.2); Sodium Level 140 mmol/L (136-145)
--- NOTE | 2024-08-23 10:29 | ECHOD_ITS ---
Version 2 Reason For Study: SYNCOPE Procedure This was a 2D Doppler, Color Flow transthoracic echocardiogram. Myocardial strain analysis was performed in this exam to aid in the assessment of cardiac function. Exam performed in department. Left Ventricle Normal LV size. Left ventricular systolic function is normal. The left ventricular ejection fraction is 60 %. Stage 1 diastolic dysfunction. No regional wall motion abnormalities noted. Right Ventricle Normal RV size. Normal systolic function. Atria Normal left atrium. Normal right atrium. Mitral Valve Normal mitral valve. Tricuspid Valve Normal tricuspid valve. Mild tricuspid valve insufficiency. Pulmonary artery systolic pressure is 26 mmHg. Aortic Valve Trisinus/trileaflet aortic valve. Mild focal aortic valve calcification. Pulmonic Valve Normal pulmonic valve. Great Vessels Normal aortic root. The pulmonary artery is normal size. Normal inferior vena cava. Pericardium/Pleural No pericardial effusion. MMode/2D Measurements & Calculations LVIDd: 3.5 cm IVSd: 1.1 cm LVOT diam: 2.0 cm LVIDs: 2.2 cm LVPWd: 1.0 cm LVOT area: 3.3 cm2 RVDd: 3.2 cm FS: 36.4 % LAV(MOD-bp): 24.2 ml LVAd ap4: 18.1 cm2 LVAd ap2: 19.7 cm2 LAV(MOD-bp) Indexed: 12.8 ml/m2 LVLd ap4: 7.0 cm LVLd ap2: 7.4 cm LAV(MOD-sp2): 26.1 ml EDV(MOD-sp4): 38.9 ml EDV(MOD-sp2): 44.1 ml LAV(MOD-sp4): 22.8 ml EDV(sp4-el): 40.1 ml EDV(sp2-el): 44.4 ml LVAs ap4: 10.0 cm2 LVAs ap2: 10.9 cm2 LVLs ap4: 6.2 cm LVLs ap2: 6.3 cm ESV(MOD-sp4): 13.7 ml ESV(MOD-sp2): 16.1 ml ESV(sp4-el): 13.7 ml ESV(sp2-el): 16.1 ml EF(MOD-sp4): 64.9 % EF(MOD-sp2): 63.6 % EF(sp4-el): 65.8 % SV(MOD-sp4): 25.2 ml SV(MOD-sp2): 28.0 ml SV(sp4-el): 26.4 ml Ao sinus diam: 3.[address] Junction: 2.6 cm LA A4 area: 10.8 cm2 LA dimension(2D): 3.4 cm RA A4 area: 10.7 cm2 TAPSE: 1.6 cm Time Measurements MV dec time: 0.27 sec Doppler Measurements & Calculations MV E max sanford: 68.6 cm/sec Lat Peak E' Sanford: 10.4 cm/sec Med Peak E' Sanford: 9.0 cm/sec MV A max sanford: 89.8 cm/sec E/E' lat: 6.6 E/E' med: 7.6 MV E/A: 0.76 Ao V2 max: 136.4 cm/sec LV V1 max: 114.9 cm/sec MV dec slope: 257.2 cm/sec2 Ao max P.4 mmHg LV V1 max P.3 mmHg Ao V2 mean: 86.2 cm/sec LV V1 mean P.7 mmHg Ao mean P.5 mmHg LV V1 mean: 76.5 cm/sec Ao V2 VTI: 26.8 cm LV V1 VTI: 24.3 cm AV (velocity ratio): 0.90 RAY(I,D): 3.0 cm2 RAY(V,D): 2.8 cm2 SV(LVOT): 80.0 ml PA V2 max: 81.3 cm/sec TR max sanford: 240.8 cm/sec PA max PG (full): 0.08 mmHg TR max P.2 mmHg ECHO/Echo Complete Interpretation Summary Normal LV size. Left ventricular systolic function is normal. The left ventricular ejection fraction is 60 %. Stage 1 diastolic dysfunction. Pulmonary artery systolic pressure is 26 mmHg. The global longitudinal strain is borderline abnormal. The global longitudinal strain = -15.9% (abnormal). Ordering Physician: Mamadou Toscano Performed By: Malachi, Leesa, RDCS
[2024-08-23 11:19] VITALS: BP 109/65; PULSE 69; PULSE 70; RESP 16; TEMP 36.6; O2SAT 98
[2024-08-23 11:29] LABS: Bedside Glucose 100 mg/dL (74-106)
[2024-08-23 12:47] LABS: Hemoglobin A1c 6.8 % (3.8-5.6)
[2024-08-23] MEDS: FLU VACCINE **HIGH DOSE** TV 24-25 180 MCG/0.5 ML SYRINGE IM (13:40)
[2024-08-23 13:49] VITALS: PULSE 83
[2024-08-23 14:11] LABS: Vitamin D,25 Hydroxy 54.3 ng/mL
--- NOTE | 2024-08-23 14:20 | RAD_ITS ---
STUDY: X-RAY - LEFT TIBIA AND FIBULA REASON FOR EXAM: Female, 64 years old. Ankle fracture. TECHNIQUE: 2 views of the left tibia and fibula were obtained. COMPARISON: None. FINDINGS: There is a minimally displaced oblique fracture of the distal fibula. There is a fracture of the anterior aspect of the medial malleolus of the distal tibia. There is mild soft tissue swelling around the ankle RAD/Tibia & Fibula 2 Views IMPRESSION: Minimally displaced oblique fracture of the distal fibula. Fracture of the anterior aspect of the medial malleolus of the distal tibia. Electronically Signed: Dylan Novoa MD at 14:50 EDT ,
[2024-08-23] MEDS: Acetaminophen 325 MG Tablet 650 MG PO (14:53)
[2024-08-23 15:01] VITALS: BP 93/70; PULSE 76; RESP 16; TEMP 36.6; O2SAT 96
--- NOTE | 2024-08-23 15:43 | EKG12_ITS ---
Test Reason : PRE OP Blood Pressure : / mmHG Vent. Rate : 070 BPM Atrial Rate : 070 BPM P-R Int : 130 ms QRS Dur : 092 ms QT Int : 400 ms P-R-T Axes : 051 002 043 degrees QTc Int : 432 ms Normal sinus rhythm Nonspecific ST abnormality Abnormal ECG When compared with ECG of 17-AUG-2024 16:27, No significant change was found Confirmed by SAV BOWLES, RIAN ([id number]), photograph editor CINDY MCCARTY ([id number]) on 08/25/2024 6:08:55 AM Referred By: Confirmed By:RIAN ANG MD
[2024-08-23 16:18] VITALS: PULSE 72
[2024-08-23 16:19] LABS: Bedside Glucose 144 mg/dL (74-106)
--- NOTE | 2024-08-23 18:30 | PN.HOSP_ITS ---
Subjective Subjective 67-year-old female presents to the hospital for trimalleolar fracture repair after syncopal episode about a week ago. Medicine was consulted because she was supposed to have an outpatient cardiac workup for her syncopal episode. She denies any chest pain or lightheadedness. The event itself sounds vasovagal as she was out walking with family and came home and was sitting in a chair and as they got up to leave she passed out. She denies any signs of palpitations though she says that she has had a history of SVT in the past which is not evident currently on telemetry. She is never had any chest pain in the past with activity but she does get short of breath on occasion secondary to asthma. Objective Data Objective Data Vital Signs: Vital Signs Temp Pulse Resp BP Pulse Ox O2 Del Method 97.8 F 72 16 93/70 96 Room Air 08/23/24 15:01 08/23/24 16:18 08/23/24 15:01 08/23/24 15:01 08/23/24 15:01 08/23/24 15:01 Oxygen Delivery Method Room Air Weight: 165 lb 0.009 oz Body Mass Index (BMI) 25.0 Intake & Output: Intake and Output for Last 24 Hours 08/22/24 08/23/24 08/24/24 03:59 03:59 03:59 Intake Total 350 / 350 Balance 350 / 350 Lab / Micro Data 08/24/24 06:02 08/23/24 09:38 Labs: Laboratory Results - last 24 hr 08/23/24 09:38: WBC 8.1, RBC 4.21, Hgb 12.9, Hct 40.5, MCV 96.2, MCH 30.6, MCHC 31.9 L, RDW Std Deviation 49.9 H, RDW Coeff of Ra 14.4, Plt Count 266, MPV 9.3, Immature Gran % (Auto) 0.400, Neut % (Auto) 72.4 H, Lymph % (Auto) 15.6 L, [place] % (Auto) 9.0, Eos % (Auto) 2.0, Baso % (Auto) 0.6, Absolute Neuts (auto) 5.9, Absolute Lymphs (auto) 1.27, Nucleated RBC % 0, Sodium 140, Potassium 3.5, Chloride 103, Carbon Dioxide 29.0, Anion Gap 9, BUN 23 H, Creatinine 1.18 H, Estim Creat Clear Calc 47.95, Est GFR (MDRD) Af Amer 59 L, Est GFR (MDRD) Non-Af 49 L, BUN/Creatinine Ratio 19.5, Glucose 123 H, Hemoglobin A1c 6.8 H, Calcium 10.1, Total Bilirubin 1.00, AST 18, ALT 26, Alkaline Phosphatase 77, Total Protein 7.4, Albumin 3.7, Globulin 3.7, Albumin/Globulin Ratio 1.0, Vitamin D 25-Hydroxy 54.3, TSH 2.640 08/23/24 10:53: POC Glucose 100 08/23/24 16:01: POC Glucose 144 H Radiography Diagnostic Testing: Radiology Impression Lower Extremity CT 08/23/24 09:27 IMPRESSION: Trimalleolar fracture of the left ankle. Mild degenerative arthrosis at the first tarsometatarsal joint. Soft tissue swelling around the ankle and along the dorsum of the foot. Electronically Signed: Dylan Novoa MD at 10:27 EDT , Echocardiogram 08/23/24 10:29 Interpretation Summary Normal LV size. Left ventricular systolic function is normal. The left ventricular ejection fraction is 60 %. Stage 1 diastolic dysfunction. Pulmonary artery systolic pressure is 26 mmHg. The global longitudinal strain is borderline abnormal. The global longitudinal strain = -15.9% (abnormal). Ordering Physician: Mamadou Toscano Performed By: Leesa Ly RDCS Tibia/Fibula X-Ray 08/23/24 14:20 IMPRESSION: Minimally displaced oblique fracture of the distal fibula. Fracture of the anterior aspect of the medial malleolus of the distal tibia. Electronically Signed: Dylan Novoa MD at 14:50 EDT , Physical Exam Narrative General: Alert, Oriented x3, Cooperative, No apparent distress HEENT: Atraumatic, PERRLA, EOMI, Normocephalic Oral: Moist Mucosa Neck: Supple, No JVD Lungs: Clear to auscultation, Normal air movement, No rhonchi, No wheeze, No rales Cardiovascular: Regular rate, Regular Rhythm, Normal S1, Normal S2, No murmurs Abdomen: Soft, Non Tender, Non-Distended, No Hepato-splenomegaly Extremities: No edema, Capillary Refill Less than 3 Seconds Skin: No rashes, No breakdown Musculoskeletal: Left ankle is wrapped Neurological: No focal neurological deficits, Motor Exam 5/5 strength throughout, Sensory exam intact to light touch and pain Psych/Mental Status: Normal Affect, Appropriate Assessment & Plan Assessment/Plan (1) Trimalleolar fracture of left ankle: PLAN: Plan 1. Trimalleolar fracture after syncopal episode ? Echo is unremarkable with stage I diastolic dysfunction with an EF of 60% ? Telemetry so far has been unremarkable ? She is low risk for surgery ? Pain management per primary ? Plan for OR on 08/24/2024 2. DM2 ? Stable, hold metformin ? Continue with sliding scale insulin ? Accu-Cheks ACHS 3. Essential HTN/HLD ? Continue with her home blood pressure medications ? Continue with her home Crestor ? Will monitor make adjustments as necessary 4. Hypothyroidism ? Stable ? Continue with TSH 5. GERD ? Stable ? Continue with PPI DVT: SCDs Charges/Coding Visit Charges Inpatient E&M: 14946 Subs Hosp L2
[2024-08-23 22:08] VITALS: BP 108/68; PULSE 69; RESP 16; TEMP 36.8; O2SAT 95
[2024-08-23] MEDS: Rosuvastatin Calcium 5 MG Tablet PO (22:12)
[2024-08-23] MEDS: Pantoprazole Sodium 40 MG Tablet PO (22:12)
[2024-08-23] MEDS: Nadolol 20 MG Tablet PO (22:17)
[2024-08-23 22:43] LABS: Bedside Glucose 97 mg/dL (74-106)
[2024-08-23] MEDS: Gabapentin 800 MG Tablet PO (22:56)
[2024-08-24] VITALS (19 sets, daily range): BP systolic 114–147; BP diastolic 58–90; PULSE 63–84; RESP 15–18; TEMP 36.2–36.9; O2SAT 94–100; BMI 25.0
[2024-08-24] MEDS: Levothyroxine 88 MCG Tablet PO (04:37)
[2024-08-24 06:18] LABS: Absolute Lymphocyte Count 2.26 X10^3/uL (0.83-4.51); Absolute Neutrophil Count 3.8 X10^3/uL (2.0-7.7); Basophil# 0.05 X10^3/uL; Basophil% 0.7 % (0-1); Eosinophil# 0.21 X10^3/uL; Hematocrit 38.4 % (37-47); Hemoglobin 12.4 g/dL (12.0-15.0); Lymphocyte # 2.26 X10^3/ul (0.83-4.51); Lymphocyte % 32.4 % (19-41); Mean Corp Hgb Conc 32.3 g/dL (32-36); Mean Corpuscular Hgb 30.7 pg (27.0-32.0); Mean Platelet Vol. 9.6 fl (6.2-12.0); NRBC Flagged by Analyzer 0 % (0-5); Neutrophil # 3.75 X10^3/uL (2.7-7.7); Neutrophil % 53.8 % (47-70); Platelet Count 266 K/mm3 (150-450); RBC Distribution Width CV 14.5 % (11.6-14.6); RBC Distribution Width SD 50.1 fl (35.1-43.9); Red Blood Count 4.04 M/mm3 (4.2-5.4)
[2024-08-24 06:41] LABS: Bedside Glucose 109 mg/dL (74-106)
[2024-08-24 07:35] LABS: Anion Gap 9 (5-15); BUN 22 mg/dL (7-18); BUN/Creat Ratio 22.9 RATIO (10-20); Calcium,Total 10.1 mg/dL (8.5-10.1); Chloride 101 mmol/L (98-107); Creatinine, Serum 0.96 mg/dL (0.55-1.02); EST Glomerular Filtration Rate 62 mL/min (>60); Est Glom Filt Rate - Afr Amer 75 mL/min (>60); Estimated Creatinine Clearance 58.94 ml/min; Glucose 118 mg/dL (74-106); Potassium 3.5 mmol/L (3.5-5.1); Sodium Level 138 mmol/L (136-145)
[2024-08-24] MEDS: Acetaminophen 325 MG Tablet 650 MG PO (07:59)
[2024-08-24] MEDS: Pantoprazole Sodium 40 MG Tablet PO ×2 (07:59→22:19)
--- NOTE | 2024-08-24 10:41 | CASEMGMT ---
TRIP [place]ROE Assessment: Face to Face with pt for initial transition planning/care coordination assessment. RN MABEL introduced self and role at [facility], pt voices understanding and consents to assessment. Pt is A&O x4 and answers all questions appropriately at this time. Pt lying in bed in no distress, daughter sitting at bedside. Pt agreeable to discussing DC plan with daughter in room. Care providers, pharmacy, and demographics verified/updated. Strata: 1 Admitting Dx: L ankle Fracture PCP: Danna Specialists: Denies Preferred Pharmacy: [facility] Insurance: [employer] [facility] Prescription Benefit: yes LNOK: Agus, ; Chloe, Daughter Living Arrangements: Pt lives with in a 2 story home with 1+3 steps to enter. ADLs: Pt reports I at home with ADLs and IADLs prior to fall. Transportation: Pt drives self and denies concerns with transportation. Pt family able to provide transportation. DME: Knee Scooter, crutches, bed. HHC/SNF: Denies Hx of. Pt states no concerns with going home at time of dc. Pt states no further concerns/needs. CM to follow. Advised pt to ask CM if any further question/concerns/needs arise, voices understanding. Pt Goal: Home Plan: Home with DME, follow therapy for recommendations. Anjel DOMINIQUE CM
[2024-08-24 11:58] LABS: Bedside Glucose 130 mg/dL (74-106)
[2024-08-24] MEDS: Lactated Ringers 1,000 ML 15 ML IV (11:58)
--- NOTE | 2024-08-24 12:24 | PRE.ANES_ITS ---
ASA Classification* ASA Classification ASA Classification: 3 Assessment & Plan Anesthesia* Anesthesia Assessment Anesthesia Assessment: Discussed sedation and/or anesthesia options, risks, benefits, and alternatives with patient/parents/legal guardian/POA. Questions invited. The patient/parents/legal guardian/POA seems to understand and agrees to proceed with anesthesia plan. Reviewed the physical assessment, medical history, allergy history and patient home medications list prior to surgery/procedure/anesthetic and documented any changes. Performed airway and anesthesia risk assessments. Anesthesia Type Anesthesia Type: General and Block (Plan for postop popliteal block. Patient is consented.) History Source History Obtained from:: Patient and Chart Anesthesia Focused Assessment* Temperature: 97.8 F Pulse Rate: 70 Blood Pressure: 123/71 Respiratory Rate: 18 Pulse Ox: 98 Oxygen Delivery Method: Room Air Airway Assessment Mouth opens: >3 cm Mallampati Score: I Teeth Condition: Caps/Crowns (Couple of crowns on the molars. They are tight.) Neck Range of motion (ROM): Limited ROM (Slight decrease in extension) Focused Labs Anesthesia Preop lab: CBC WBC 7.0 K/mm3 (4.4-11.0) 08/24/24 06:02 RBC 4.04 M/mm3 (4.2-5.4) L 08/24/24 06:02 Hgb 12.4 g/dL (12.0-15.0) 08/24/24 06:02 Hct 38.4 % (37-47) 08/24/24 06:02 Plt Count 266 K/mm3 (150-450) 08/24/24 06:02 CHEMISTRY Potassium 3.5 mmol/L (3.5-5.1) 08/24/24 06:02 Sodium 138 mmol/L (136-145) 08/24/24 06:02 Magnesium 1.6 mg/dL (1.6-2.6) 08/17/24 16:54 BUN 22 mg/dL (7-18) H 08/24/24 06:02 Creatinine 0.96 mg/dL (0.55-1.02) 08/24/24 06:02 Glucose 118 mg/dL (74-106) H 08/24/24 06:02 POC Glucose 130 mg/dL (74-106) H 08/24/24 11:38 TSH 2.640 uIU/mL (0.358-3.740) 08/23/24 09:38 COAG Pre-Assessment Diagnosis/Proposed Procedure Planned Operative Procedure(s): Open reduction internal fixation left ankle. 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 When Was Last Pacemaker Check QUESTION #4 FULL TEXT: You/Your Family Experience fever (hyperthermia) with Anesthesia Last Oral Intake Last Oral intake: Last Oral Intake NPO since 23:55 08/24/24 10:18 Meds taken in AM with sips of water? 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 Has anyone observed you stop No 08/23/24 08:32 breathing during sleep? STOP Results Negative 08/23/24 08:32 QUESTION #5 FULL TEXT : Do you snore loudly (louder than talking or can be heard through closed doors)? 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 Specify any problems Hx of Preganancy in last 3 No 08/23/24 08:32 Months Nurse Filling Out Transfusion TCLEVIDEN 08/23/24 08:32 & Questions: Date: 08/23/24 08/23/24 08:32 Time: 08:37 08/23/24 08:32 Patient unable to answer at this time (ie. confused, unrespo /Reproduction History /Reproductive History - pipe organ mechanic apprentice: /Reproductive Hx- pipe organ mechanic apprentice Hx Now No 08/23/24 15:46 Gestational Age (in weeks): EDC: Hx Hx Para Hx Section SAB No 08/23/24 15:46 Active Medications Active Medications: Current Medications Generic Name Dose Route Start Last Admin Trade Name Freq PRN Reason Stop Dose Admin Acetaminophen 650 mg 08/23/24 13:02 08/24/24 07:59 Acetaminophen 325 Mg Tablet PO 650 mg Q6H PRN PRN Administration Pain Score 1-10 Albuterol Sulfate 2.5 mg 08/23/24 10:50 Albuterol 2.5 Mg/3 Ml Vial.Neb. INHALATION BID PRN SHORTNESS OF BREATH Glucagon 1 mg 08/23/24 10:31 Glucagon 1 Mg/Ml Syringe IM X1 PRN Hypoglycemia Protocol Sodium Chloride 100 mls @ 15 mls/hr 08/23/24 08:34 IV .Q6H40M PRN Saline Flush Sodium Chloride 100 mls @ 15 mls/hr 08/23/24 08:34 IV .Q6H40M PRN Additional IVPB Infusion Dextrose 250 mls @ 0 mls/hr 08/23/24 10:31 Dextrose 10%-Water IV .Q0M PRN HYPOGLYCEMIA Protocol As Directed Lactated Ringer's 1,000 mls @ 15 mls/hr 08/24/24 12:00 08/24/24 11:58 IV 15 mls/hr .Q48H ALINA Administration Insulin Human Lispro 0 unit 08/23/24 11:00 08/24/24 08:04 Insulin Lispro 100 Unit/Ml Insuln.Pen SC Not Given ACHS [facility] Protocol Levothyroxine Sodium 88 mcg 08/24/24 06:00 08/24/24 04:37 Levothyroxine 88 Mcg Tablet PO 88 mcg 0600 ALINA Administration Nadolol 20 mg 08/24/24 22:00 Nadolol 20 Mg Tablet PO DAILY@2200 [facility] Protocol Oxycodone HCl 5 mg 08/23/24 13:49 Oxycodone 5 Mg Tablet PO Q6H PRN PRN Pain Score 6-10 Pantoprazole Sodium 40 mg 08/23/24 22:00 08/24/24 07:59 Pantoprazole Sodium 40 Mg Tablet PO 40 mg BID ALINA Administration Rosuvastatin Calcium 5 mg 08/23/24 22:00 08/23/24 22:12 Rosuvastatin Calcium 5 Mg Tablet PO 5 mg QHS ALINA Administration Sodium Chloride 10 - 40 ml 08/23/24 08:34 0.9% Saline Lock 10 Ml Syringe IV UD PRN SALINE FLUSH Triamterene/Hydrochlorothiazide 1 cap 08/24/24 10:00 08/24/24 08:04 Triamterene 37.5mg/Hctz 25mg Capsule PO Not Given DAILY ALINA PFSH Medical History (Updated 08/23/24 @ 10:[address] Jose Guadalupe Pino, DPM) Post-menopausal Syncope High cholesterol History of stress test Cancer Hypothyroidism Diabetes Chronic pain Osteoporosis Kidney stones GI bleed GERD (gastroesophageal reflux disease) COPD (chronic obstructive pulmonary disease) Irregular heart beat Migraines Hypopotassemia Hypothyroidism SVT (supraventricular tachycardia) Essential hypertension Hyperlipidemia Type 2 diabetes mellitus without complication COPD (chronic obstructive pulmonary disease) History of malignant neoplasm of right breast Meniere disease History of migraine History of pleurisy Tietze's disease History of Lindsey thyroiditis Rosacea DDD (degenerative disc disease), lumbar Asthma Home Medications ?Medication ?Instructions ?Recorded ?Last Taken ?Type albuterol sulfate 90 mcg/actuation 2 inh inhalation BID PRN sob 01/16/22 Unknown History breath activated powder inhaler (ProAir RespiClick) cholecalciferol (vitamin D3) 25 25 mcg PO DAILY 01/16/22 Unknown History mcg (1,000 unit) tablet gabapentin 800 mg tablet 800 mg PO BID 01/16/22 Unknown History levothyroxine 88 mcg tablet 88 mcg PO DAILY thyroid 01/16/22 Unknown History meclizine 12.5 mg tablet 12.5 mg PO TID PRN dizziness 01/16/22 Unknown History metformin 500 mg tablet,extended 1,000 mg PO BID 01/16/22 Unknown History release 24 hr drjshcqfrwwv-slzmcndp-ygvflme-folic 1 tab PO DAILY 01/16/22 Unknown History acid 400 mcg-vit K1 20 mcg tablet (One-A-Day Women's 50 Plus) nadolol 20 mg tablet 20 mg PO DAILY 01/16/22 Unknown History pantoprazole 40 mg tablet,delayed 40 mg PO BID 01/16/22 Unknown History release potassium chloride 10 mEq 10 meq PO BID supplement 01/16/22 Unknown History tablet,extended release promethazine 25 mg tablet 25 mg PO Q4H PRN nausea 01/16/22 Unknown History tramadol 50 mg tablet 50 mg PO DAILY PRN sleep 01/16/22 Unknown History triamterene 37.5 1 tab PO DAILY 01/16/22 Unknown History mg-hydrochlorothiazide 25 mg tablet baclofen 10 mg tablet 20 mg PO BID pain 01/23/22 Unknown History rosuvastatin 40 mg tablet 5 mg PO DAILY cholesterol 01/23/22 Unknown History dulaglutide 3 mg/0.5 mL 4.5 mg subcut QWEEK diabeties 08/23/24 Unknown [facility] tiotropium bromide 2.5 2 puff inhalation DAILY 08/23/24 Unknown History mcg/actuation mist for inhalation (Spiriva Respimat) Allergy/AdvReac Type Severity Reaction Status Date / Time atorvastatin Allergy Severe myalgia, Verified 08/17/24 16:21 esophageal spasm lisinopril Allergy Severe swelling, Verified 08/17/24 16:21 ? angioedema diclofenac (From Voltaren) Allergy Intermediate Vomiting Verified 08/23/24 08:52 doxycycline Allergy Intermediate affected Verified 08/23/24 08:52 joints fluticasone (From Advair Allergy Intermediate leg cramps Verified 08/23/24 08:52 Diskus) meloxicam Allergy Intermediate nausea Verified 08/23/24 08:52 metronidazole (From Flagyl) Allergy Intermediate affected Verified 08/23/24 08:52 joints nitrofurantoin (From Allergy Intermediate hives Verified 08/23/24 08:52 Macrobid) pregabalin (From Lyrica) Allergy Intermediate dizziness, Verified 08/23/24 08:52 mental status change rofecoxib (From Vioxx) Allergy Intermediate Swelling Verified 08/23/24 08:52 salmeterol (From Advair Allergy Intermediate leg cramps Verified 08/23/24 08:52 Diskus) tramadol (From Ultram) Allergy Intermediate GI upset Verified 08/23/24 08:52 adhesive Allergy Unknown unknown Verified 08/23/24 08:52 Family History Mother Heart disease CVA (cerebral vascular accident) Hypertension Cancer Lung cancer with mets to brain Father Heart disease Cancer skin Hypertension Grandfather Diabetes Grandmother Cancer Ovarian Surgical History History of lobectomy of thyroid (01/06/08) History of partial mastectomy of right breast (02/08/03) History of lung surgery (1975) History of tubal ligation History of dilatation and curettage History of tonsillectomy (1981) History of hand surgery History of esophagogastroduodenoscopy History of bunionectomy History of colonoscopy Social History Smoking Status: Never smoker alcohol intake: never substance use type: does not use Review of Systems (Anesthesia) ROS Narrative System reviewed and no additional complaints, except as documented.
[2024-08-24] MEDS: Cefazolin 2 GM in 0.9% Normal Saline (100mL Bag) 100 ML IV (13:24)
[2024-08-24] MEDS: Lidocaine 1% (20 ml mdv) 20 ML Vial (14:00)
--- NOTE | 2024-08-24 14:00 | RAD_ITS ---
STUDY: X-RAY - LEFT ANKLE REASON FOR EXAM: Female, 64 years old. Fracture. TECHNIQUE: 3 fluoroscopic spot films of the left ankle. COMPARISON: Left tibia/fibular radiographs dated 08/23/2024. FINDINGS: There is new ORIF hardware of the distal fibula with fixation screws in place, bridging a distal fibular fracture. There is a new tight rope anchor across the distal tibiofibular joint. Again seen is a fracture of the anterior aspect of the medial malleolus of the distal tibia. Normal visualized talus and calcaneus. RAD/Ankle min 3 Views IMPRESSION: New ORIF hardware in the distal fibula and tight rope anchor across the distal tibiofibular joint. Electronically Signed: Dylan Novoa MD at 15:22 EDT ,
--- NOTE | 2024-08-24 15:21 | OP.PCM_ITS ---
Report of Operation Date of Procedure: 08/24/24 Pre-Operative Diagnosis: Trimalleolus ankle fracture, left Post-Operative Diagnosis: Same Surgery/Procedure Performed:: Open reduction internal fixation, left ankle Surgeon: Jose Guadalupe Pino director of enterprise applications: None Type of Anesthesia: General and Local Specimen's removed: None Estimated Blood Loss (mL): 1mL Description of Procedure: Indications: This is a 64 year old female who sustained a left ankle fracture - trimalleolus ankle fracture. Xrays and CT scan obtained, there is some displacement to the ankle fracture. Discussed options with her. Patient elected to proceed with open reduction internal fixation of the fracture. The procedure was reviewed with her in detail. The rationale of the procedure was reviewed with her. The goals and the expectations were discussed and reviewed with her. The possible benefits vs risks and potential complications were discussed and reviewed with the patient. Patient advised the risks include but are not limited to pain, swelling, blood clot, infection, need for further surgery, symptomatic hardware, post op arthritis, nerve injury, weakness, loss of limb, loss of life.The patient expressed understanding and agreement, and elected to proceed forward with the procedure. All of her questions were answered. The consent form was reviewed with her and she freely signed it. No guarantees were given or implied. No warranties were given. She has been medically cleared for surgery. Operative Procedure: The patient was brought back to the operating room and was placed on the operating room table in the supine position. The patient was carefully secured to the operating room table with a safety belt around her waist. The patient received 2g IV Cephazolin for antibiotic prophylaxis. The patient received general anesthesia per the anesthesia team. A well padded pneumatic tourniquet was applied around the left thigh. The left lower extremity was scrubbed, prepped, and draped in the usual aseptic fashion. A timeout was also preformed and the patient was properly identified and surgical plan confirmed. Left ankle Open Reduction Internal Fixation: A total of 10mL of 1% Lidocaine plain was given as a medial and lateral ankle block. The ankle was noted to be unstable consistent with trimalleolar ankle fracture. The left foot and ankle were exsanguinated using an Esmarch bandage and the left thigh pneumatic tourniquet was inflated in 300mmHg. Using a 15 blade, a skin incision was made overlying the lateral malleolus. Careful dissection was completed down to the lateral malleolus fracture. The periosteum was left intact. There was a malrotated displaced oblique malleolus fracture. The fibula was brought out to length and was rotated back to normal position, it was stabilized with a bone clamp. The fracture was fixated using rigid open reduction internal fixation technique with 1 Arthrex a titanium distal fibular plate, which was applied across the fracture site using 3.0mm locking screws distally and 3.5mm locking screws and one 3.5mm cortical screw proximally through the plate. The clamp was removed. There fracture was reduced, very stable, and in good position. This was confirmed visually as well as using intra operative fluoroscopy. Attention was directed to the medial malleolus which was in good alignment and properly reduced in good position, it was stable so it was not fixated. The posterior malleolus was small and in good position as well. There fractures were reduced, stable, and in good position. This was confirmed visually as well as using intra operative fluoroscopy. There was noted to be some mild instability of the distal syndesmosis, and the syndesmosis was reduced, and fixated using one titanium Arthrex Tightrope and appropriately tensioned. At this time, the distal ankle syndesmosis was stressed with and it was noted be be stable with no gapping present. Again, the posterior malleolus was intact, properly aligned, and did not need to be fixated. At this time there was noted to be excellent stability to the ankle joint, range of motion was smooth and gliding normally. There was no popping, clicking, or crepitus present. Intraoperative fluoroscopy was used to check the site and it was noted fibular length and tib fib overlap was normal, ankle mortise with medial and lateral gutters in normal position/alignment with good positioning of the plate, screws, and tight rope. There was good bone to bone alignment of the fracture sites. There was excellent stability to the ankle / fracture site. No screws were in the joint. The ankle was stressed under fluoroscopy and negative anterior drawer, normal talar tilt, no medial gutter gapping with external stress test, and no gapping or instability with Cotton test as noted above. The surgical site was flushed out with copious amounts of normal saline solution. The subcutaneous tissue was reapproximated using 3-0 Vicryl, and the skin was 3- 0 Nylon. Hemostasis maintained with no significant bleeding. The left thigh pneumatic tourniquet was deflated (total time was 72 minutes). There was immediate return of perfusion to left foot. CFT < 2 seconds to all toes with intact pedal pulses. A dressing was applied which consisted of Betadine soaked adaptic, 4x4 gauze, Kerlix, webril, wilver bandages, and well padded below knee posterior splint w/ heel offloaded. Also of note, all vital structures, including all vital neurovascular and tendon structures were properly identified, protected and retracted as necessary. The patient tolerated the above procedure well and anesthesia well with no complications. The patient was transported to the recovery room in good condition and vital signs stable. Post op orders were placed, no weightbearing left foot, keep left foot elevated. Keep dressing/splint clean, dry and intact. Patient will be followed as inpatient. Grafts/Implants Used: 1 x Arthrex lateral malleolus plate and screws, 1 tight rope Complications None
--- NOTE | 2024-08-24 15:40 | RAD_ITS ---
EXAM: XR LEFT ANKLE COMPLETE, 3 OR MORE VIEWS CLINICAL INDICATION: post op TECHNIQUE: Frontal, lateral and oblique views of the left ankle. COMPARISON: XR Ankle dated 08/24/2024 FINDINGS: BONES/JOINTS: Surgical fixation of the distal fibular fracture noted with cortical compression plate in place. Nondisplaced fracture of the base of the medial malleolus again seen. SOFT TISSUES: Mild soft tissue swelling. RAD/Ankle min 3 Views IMPRESSION: Satisfactory postop changes. Electronically Signed: Carlos Johnson MD at 16:01 EDT ,
--- NOTE | 2024-08-24 15:47 | PCM.POST.ANE ---
Anesthesia: Postop Eval I Current Vital Signs Temperature: 98.2 F Pulse Rate: 78 Blood Pressure: 133/88 Respiratory Rate: 16 Pulse Ox: 100 Oxygen Delivery Method: Room Air Assessment Airway patent: Yes Spontaneous unlabored respirations: Yes Mental status: Awake and Calm nausea: No Vomiting: No Anesthesia Complication: No Fluid Hydration Crystalloid volume administer (ml): 800 Total IV fluid infused: 800 Progress Note Anesthesia document: Postop Eval 1 completed: Yes
--- NOTE | 2024-08-24 16:09 | POSTOPAN2_ITS ---
Anesthesia Postop Eval I Sum Postop Eval Completion status Anesthesia document: Postop Eval 1 completed: Yes Anesthesia Postop Eval I Summary Anesthesia Postop Eval I Summary: Anesthesia Postop Eval I: Assessment Summary Airway patent Yes 08/24/24 15:48 [email or web address] Spontaneous unlabored Yes 08/24/24 15:48 [email or web address] respirations Mental status Awake,Calm 08/24/24 15:48 [email or web address] nausea No 08/24/24 15:48 [email or web address] Vomiting No 08/24/24 15:48 [email or web address] Anesthesia Postop Eval I: Fluid Summary Crystalloid volume administer 800 08/24/24 15:48 [email or web address] (ml) Colloids volume administered ( ml) Blood Product volume administered (ml) Total IV fluid infused 800 08/24/24 15:48 [email or web address] Anesthesia Postop Eval I: Summary Notes Anesthesia Complication No 08/24/24 15:48 [email or web address] Anesthesia Complication Comment: Post-operative progress note Anesthesia: Postop Eval II Evaluation Mental status: Awake Pain Level: 0 nausea: No Vomiting: No
--- NOTE | 2024-08-24 16:09 | PCM.POSTANE2 ---
Anesthesia Postop Eval I Sum Postop Eval Completion status Anesthesia document: Postop Eval 1 completed: Yes Anesthesia Postop Eval I Summary Anesthesia Postop Eval I Summary: Anesthesia Postop Eval I: Assessment Summary Airway patent Yes 08/24/24 15:48 FLIGHT ATTENDANT/INFLIGHT [email or web address] Spontaneous unlabored Yes 08/24/24 15:48 FLIGHT ATTENDANT/INFLIGHT [email or web address] respirations Mental status Awake,Calm 08/24/24 15:48 FLIGHT ATTENDANT/INFLIGHT [email or web address] nausea No 08/24/24 15:48 FLIGHT ATTENDANT/INFLIGHT [email or web address] Vomiting No 08/24/24 15:48 FLIGHT ATTENDANT/INFLIGHT [email or web address] Anesthesia Postop Eval I: Fluid Summary Crystalloid volume administer 800 08/24/24 15:48 FLIGHT ATTENDANT/INFLIGHT [email or web address] (ml) Colloids volume administered ( ml) Blood Product volume administered (ml) Total IV fluid infused 800 08/24/24 15:48 FLIGHT ATTENDANT/INFLIGHT [email or web address] Anesthesia Postop Eval I: Summary Notes Anesthesia Complication No 08/24/24 15:48 FLIGHT ATTENDANT/INFLIGHT [email or web address] Anesthesia Complication Comment: Post-operative progress note Anesthesia: Postop Eval II Evaluation Mental status: Awake Pain Level: 0 nausea: No Vomiting: No
[2024-08-24] MEDS: Scopolamine 1mg/72hr Patch 1 PATCH TD (16:52)
[2024-08-24] MEDS: Ondansetron 4 MG/2 ML Vial IV (19:05)
[2024-08-24] MEDS: HYDROmorphone 1 MG/ML Syringe IV ×2 (19:06→22:14)
[2024-08-24] MEDS: Cefazolin 1 GM/50 ML BAG IV (22:16)
[2024-08-24] MEDS: Nadolol 20 MG Tablet PO (22:19)
[2024-08-24] MEDS: Rosuvastatin Calcium 5 MG Tablet PO (22:19)
[2024-08-24 22:45] LABS: Bedside Glucose 129 mg/dL (74-106)
[2024-08-25] VITALS (10 sets, daily range): BP systolic 95–127; BP diastolic 58–78; PULSE 63–80; RESP 15–16; TEMP 36.6–37; O2SAT 94–96
[2024-08-25] MEDS: HYDROmorphone 1 MG/ML Syringe IV ×2 (02:45→06:05)
[2024-08-25] MEDS: 0.9% Saline Lock 10 ML Syringe IV ×5 (02:46→21:29)
[2024-08-25] MEDS: Cefazolin 1 GM/50 ML BAG IV ×3 (06:09→21:29)
[2024-08-25] MEDS: APIXABAN 2.5 MG TABLET (WCH) PO ×2 (06:09→18:10)
[2024-08-25] MEDS: Levothyroxine 88 MCG Tablet PO (06:09)
[2024-08-25 07:04] LABS: Bedside Glucose 140 mg/dL (74-106)
--- NOTE | 2024-08-25 08:42 | PCM.PN.HOSP ---
Subjective Subjective Increased pain Objective Data Objective Data Vital Signs: Vital Signs Temp Pulse Resp BP Pulse Ox O2 Del Method 97.8 F 78 15 127/75 H 96 Room Air 08/25/24 05:57 08/25/24 05:57 08/25/24 05:57 08/25/24 05:57 08/25/24 05:57 08/25/24 05:57 Oxygen Delivery Method Room Air Weight: 164 lb 15.55 oz Body Mass Index (BMI) 25.0 Intake & Output: Intake and Output for Last 24 Hours 08/24/24 08/25/24 08/26/24 03:59 03:59 03:59 Intake Total 350 / 350 660 / 660 50 / 50 Output Total 200 / 200 250 / 250 Balance 350 / 350 460 / 460 -200 / -200 Lab / Micro Data 08/24/24 06:02 08/24/24 06:02 Labs: Laboratory Results - last 24 hr 08/24/24 11:38: POC Glucose 130 H 08/24/24 22:25: POC Glucose 129 H 08/25/24 06:44: POC Glucose 140 H Radiography Diagnostic Testing: Radiology Impression Ankle X-Ray 08/24/24 14:00 IMPRESSION: New ORIF hardware in the distal fibula and tight rope anchor across the distal tibiofibular joint. Electronically Signed: Dylan Novoa MD at 15:22 EDT , Ankle X-Ray 08/24/24 15:40 IMPRESSION: Satisfactory postop changes. Electronically Signed: Carlos Johnson MD at 16:01 EDT , Physical Exam Narrative General: Alert, Oriented x3, Cooperative, No apparent distress HEENT: Atraumatic, PERRLA, EOMI, Normocephalic Oral: Moist Mucosa Neck: Supple, No JVD Lungs: Clear to auscultation, Normal air movement, No rhonchi, No wheeze, No rales Cardiovascular: Regular rate, Regular Rhythm, Normal S1, Normal S2, No murmurs Abdomen: Soft, Non Tender, Non-Distended, No Hepato-splenomegaly Extremities: No edema, Capillary Refill Less than 3 Seconds Skin: No rashes, No breakdown Musculoskeletal: Left ankle wrapped and in a splint Neurological: No focal neurological deficits, Motor Exam 5/5 strength throughout, Sensory exam intact to light touch and pain Psych/Mental Status: Normal Affect, Appropriate Assessment & Plan Assessment/Plan (1) Trimalleolar fracture of left ankle: PLAN: Plan 1. Trimalleolar fracture after syncopal episode status post repair 08/24/2024 ? Echo is unremarkable with stage I diastolic dysfunction with an EF of 60% ? Can discontinue telemetry ? Pain management per primary ? From medical standpoint she is cleared for discharge however she is having increased pain, her baclofen and gabapentin been restarted and will continue with oxycodone but limit sedation affected by discontinuing her Dilaudid if she needs breakthrough pain can potentially be moved to a Toradol with the caveat that she is on Eliquis 2.5 mg p.o. twice daily 2. DM2 ? Stable, metformin continued by primary, renal function is stable ? Continue with sliding scale insulin ? Accu-Cheks ACHS 3. Essential HTN/HLD ? Continue with her home blood pressure medications ? Continue with her home Crestor ? Will monitor make adjustments as necessary 4. Hypothyroidism ? Stable ? Continue with Synthroid 5. GERD ? Stable ? Continue with PPI DVT: Eliquis 2.5 mg p.o. twice daily Charges/Coding Visit Charges Inpatient E&M: 33013 Subs Hosp L2
[2024-08-25] MEDS: Pantoprazole Sodium 40 MG Tablet PO ×2 (09:05→21:20)
[2024-08-25] MEDS: Potassium Chloride Oral Tablet 10 MEQ PO ×2 (09:05→18:10)
[2024-08-25] MEDS: Multivitamins,Ther W-Minerals Tablet 1 TABLET PO (09:06)
[2024-08-25] MEDS: Baclofen 10 MG Tablet 20 MG PO ×2 (09:06→21:22)
[2024-08-25] MEDS: oxyCODONE 5 MG Tablet PO ×4 (09:06→22:46)
[2024-08-25] MEDS: Acetaminophen 500 MG Tablet 1000 MG PO ×3 (09:07→21:19)
[2024-08-25] MEDS: Gabapentin 800 MG Tablet PO ×2 (09:07→21:28)
[2024-08-25] MEDS: metFORMIN (XR) 500 MG Tablet 1000 MG PO ×2 (09:07→18:10)
[2024-08-25 09:16] LABS: Absolute Lymphocyte Count 1.63 X10^3/uL (0.83-4.51); Absolute Neutrophil Count 6.4 X10^3/uL (2.0-7.7); Basophil# 0.04 X10^3/uL; Basophil% 0.4 % (0-1); Eosinophil# 0.13 X10^3/uL; Eosinophils% 1.4 % (0-5); Hematocrit 36.5 % (37-47); Hemoglobin 11.9 g/dL (12.0-15.0); Lymphocyte # 1.63 X10^3/ul (0.83-4.51); Lymphocyte % 17.7 % (19-41); Mean Corp Hgb Conc 32.6 g/dL (32-36); Mean Corpuscular Hgb 30.7 pg (27.0-32.0); Mean Corpuscular Volume 94.3 fL (81-99); Mean Platelet Vol. 9.6 fl (6.2-12.0); Monocyte# 1.01 X10^3/uL; NRBC Flagged by Analyzer 0 % (0-5); Neutrophil # 6.36 X10^3/uL (2.7-7.7); Neutrophil % 69.2 % (47-70); Platelet Count 253 K/mm3 (150-450); RBC Distribution Width CV 14.3 % (11.6-14.6); RBC Distribution Width SD 49.6 fl (35.1-43.9); Red Blood Count 3.87 M/mm3 (4.2-5.4); White Blood Count 9.2 K/mm3 (4.4-11.0)
--- NOTE | 2024-08-25 10:03 | PCM.PROGNOTE ---
Subjective Subjective Patient was seen this morning for follow up left ankle ORIF. She is resting in bed, she does have pain to ankle and has had hard time getting it comfortable, relates to pain on the outside (lateral) aspect and also points to anterior donovan. Dilaudid has helped. Objective Data Objective Data Vital Signs: Vital Signs Temp Pulse Resp BP Pulse Ox O2 Del Method 98.0 F 63 16 108/68 96 Room Air 08/25/24 08:42 08/25/24 08:42 08/25/24 08:42 08/25/24 08:42 08/25/24 08:42 08/25/24 08:43 Oxygen Delivery Method Room Air Weight: 74.83 kg Body Mass Index (BMI) 25.0 Intake & Output: Intake and Output for Last 24 Hours 08/23/24 08/24/24 08/25/24 23:59 23:59 23:59 Intake Total 350 / 350 660 / 660 369.25 / 369.25 Output Total 450 / 450 Balance 350 / 350 660 / 460 -80.75 / -80.75 Lab / Micro Data 08/25/24 09:03 08/24/24 06:02 Labs: Laboratory Results - last 24 hr 08/24/24 11:38: POC Glucose 130 H 08/24/24 22:25: POC Glucose 129 H 08/25/24 06:44: POC Glucose 140 H 08/25/24 09:03: WBC 9.2, RBC 3.87 L, Hgb 11.9 L, Hct 36.5 L, MCV 94.3, MCH 30.7, MCHC 32.6, RDW Std Deviation 49.6 H, RDW Coeff of Ra 14.3, Plt Count 253, MPV 9.6, Immature Gran % (Auto) 0.300, Neut % (Auto) 69.2, Lymph % (Auto) 17.7 L, [place] % (Auto) 11.0 H, Eos % (Auto) 1.4, Baso % (Auto) 0.4, Absolute Neuts (auto) 6.4, Absolute Lymphs (auto) 1.63, Nucleated RBC % 0 Radiography Diagnostic Testing: Radiology Impression Ankle X-Ray 08/24/24 14:00 IMPRESSION: New ORIF hardware in the distal fibula and tight rope anchor across the distal tibiofibular joint. Electronically Signed: Dylan Novoa MD at 15:22 EDT , Ankle X-Ray 08/24/24 15:40 IMPRESSION: Satisfactory postop changes. Electronically Signed: Carlos Johnson MD at 16:01 EDT , Physical Exam Narrative Left ankle dressing/splint is clean, dry and intact, no strikethrough, CFT < 2 seconds to all toes on left foot, she is able to plantarflex and dorsiflex toes, no evidence of compartment syndrome or DVT, no suspicion for infection Const alert, oriented x3 and no apparent distress Assessment & Plan Assessment/Plan (1) Trimalleolar fracture of left ankle: PLAN: Plan s/p ORIF left ankle on 08/24/2024 No weightbearing left foot, keep left foot elevated, keep dressing/splint clean, dry and intact DVT Prophylaxis: Eliquis 2.5mg PO q 12 hours Pain Management: Tylenol, Oxyir, Gabapentin, Baclofen, also she relates to itching so Benadryl has been ordered Discussed with nursing and Dr. Freitas
[2024-08-25 11:58] LABS: Bedside Glucose 236 mg/dL (74-106)
--- NOTE | 2024-08-25 12:12 | CASEMGMT ---
Therapy worked with pt and is recommending a FWW. TRIP MONROE into pt room, pt sitting up in bed with visitors at bedside. Discussed FWW that therapy recommended. Pt states that wants a rollator for her. Pt prefers a rollator. TC to therapy to confirm, states pt could have rollator but recommended FWW for more stability. Pt states she has been in touch with her insurance and they have been in contact with [employer]. She would like equipment from [employer] that includes a rollator, cast sleeve, leg rest elevation pillow and a BSC. She is aware of typical cost difference of rollator vs FWW and is willing to pay this. Pt wants all equipment ordered at once and then to see what is covered by insurance. TRIP MONROE to have rx for walker and discuss with other DME. TRIP MONROE to follow for DME needs.
[2024-08-25] MEDS: Insulin Lispro 100 UNIT/ML INSULN.PEN SC (12:24)
[2024-08-25 16:58] LABS: Bedside Glucose 104 mg/dL (74-106)
[2024-08-25] MEDS: DiphenhydrAMINE 12.5 MG/5 ML UDC PO (21:18)
[2024-08-25] MEDS: Rosuvastatin Calcium 5 MG Tablet PO (21:28)
[2024-08-25 21:54] LABS: Bedside Glucose 142 mg/dL (74-106)
[2024-08-26 04:14] VITALS: BP 105/62; PULSE 78; RESP 17; TEMP 36.7; O2SAT 96
[2024-08-26] MEDS: APIXABAN 2.5 MG TABLET (WCH) PO (06:07)
[2024-08-26] MEDS: Levothyroxine 88 MCG Tablet PO (06:07)
[2024-08-26] MEDS: Acetaminophen 500 MG Tablet 1000 MG PO (06:08)
[2024-08-26] MEDS: 0.9% Saline Lock 10 ML Syringe IV ×2 (06:09→06:49)
[2024-08-26] MEDS: Cefazolin 1 GM/50 ML BAG IV (06:09)
[2024-08-26 06:38] LABS: Bedside Glucose 107 mg/dL (74-106)
[2024-08-26 07:07] LABS: Anion Gap 6 (5-15); BUN 11 mg/dL (7-18); BUN/Creat Ratio 13.7 RATIO (10-20); Calcium,Total 8.9 mg/dL (8.5-10.1); Chloride 104 mmol/L (98-107); EST Glomerular Filtration Rate 76 mL/min (>60); Est Glom Filt Rate - Afr Amer 92 mL/min (>60); Estimated Creatinine Clearance 70.72 ml/min; Glucose 108 mg/dL (74-106); Potassium 3.5 mmol/L (3.5-5.1); Sodium Level 139 mmol/L (136-145)
[2024-08-26 07:45] VITALS: BP 97/53; PULSE 76; RESP 16; TEMP 36.2; O2SAT 94
[2024-08-26] MEDS: Multivitamins,Ther W-Minerals Tablet 1 TABLET PO (07:55)
[2024-08-26] MEDS: metFORMIN (XR) 500 MG Tablet 1000 MG PO (07:55)
[2024-08-26] MEDS: Potassium Chloride Oral Tablet 10 MEQ PO (07:55)
[2024-08-26] MEDS: Pantoprazole Sodium 40 MG Tablet PO (07:56)
[2024-08-26] MEDS: Cholecalciferol (VIT D3) 25 MCG TABLET (1,000 UNITS) PO (07:56)
[2024-08-26] MEDS: Baclofen 10 MG Tablet 20 MG PO (07:56)
[2024-08-26] MEDS: Gabapentin 800 MG Tablet PO (08:04)
--- NOTE | 2024-08-26 09:13 | PCM.PN.HOSP ---
Subjective Subjective doing well, no issues overnight Objective Data Objective Data Vital Signs: Vital Signs Temp Pulse Resp BP Pulse Ox O2 Del Method 97.2 F L 76 16 97/53 L 94 Room Air 08/26/24 07:45 08/26/24 07:45 08/26/24 07:45 08/26/24 07:45 08/26/24 07:45 08/26/24 07:45 Oxygen Delivery Method Room Air Weight: 164 lb 15.55 oz Body Mass Index (BMI) 25.0 Intake & Output: Intake and Output for Last 24 Hours 08/25/24 08/26/24 08/27/24 03:59 03:59 03:59 Intake Total 660 / 660 469.25 / 469.25 250 / 250 Output Total 200 / 200 250 / 250 Balance 460 / 460 219.25 / 219.25 250 / 250 Lab / Micro Data 08/25/24 09:03 08/26/24 05:34 Labs: Laboratory Results - last 24 hr 08/25/24 09:03: WBC 9.2, RBC 3.87 L, Hgb 11.9 L, Hct 36.5 L, MCV 94.3, MCH 30.7, MCHC 32.6, RDW Std Deviation 49.6 H, RDW Coeff of Ra 14.3, Plt Count 253, MPV 9.6, Immature Gran % (Auto) 0.300, Neut % (Auto) 69.2, Lymph % (Auto) 17.7 L, [place] % (Auto) 11.0 H, Eos % (Auto) 1.4, Baso % (Auto) 0.4, Absolute Neuts (auto) 6.4, Absolute Lymphs (auto) 1.63, Nucleated RBC % 0 08/25/24 11:41: POC Glucose 236 H 08/25/24 16:39: POC Glucose 104 08/25/24 21:35: POC Glucose 142 H 08/26/24 05:34: Sodium 139, Potassium 3.5, Chloride 104, Carbon Dioxide 30.0, Anion Gap 6, BUN 11, Creatinine 0.80, Estim Creat Clear Calc 70.72, Est GFR (MDRD) Af Amer 92, Est GFR (MDRD) Non-Af 76, BUN/Creatinine Ratio 13.7, Glucose 108 H, Calcium 8.9 10/10/24 06:03: POC Glucose 107 H Physical Exam Narrative General: Alert, Oriented x3, Cooperative, No apparent distress HEENT: Atraumatic, PERRLA, EOMI, Normocephalic Oral: Moist Mucosa Neck: Supple, No JVD Lungs: Clear to auscultation, Normal air movement, No rhonchi, No wheeze, No rales Cardiovascular: Regular rate, Regular Rhythm, Normal S1, Normal S2, No murmurs Abdomen: Soft, Non Tender, Non-Distended, No Hepato-splenomegaly Extremities: No edema, Capillary Refill Less than 3 Seconds Skin: No rashes, No breakdown Musculoskeletal: Left ankle wrapped and in a splint Neurological: No focal neurological deficits, Motor Exam 5/5 strength throughout, Sensory exam intact to light touch and pain Psych/Mental Status: Normal Affect, Appropriate Assessment & Plan Assessment/Plan (1) Trimalleolar fracture of left ankle: PLAN: Plan 1. Trimalleolar fracture after syncopal episode status post repair 08/24/2024 ? Echo is unremarkable with stage I diastolic dysfunction with an EF of 60% ? Can discontinue telemetry ? Pain management per primary ?Stable for discharge, will sign off 2. DM2 ? Stable, metformin continued by primary, renal function is stable ? Continue with sliding scale insulin ? Accu-Cheks ACHS 3. Essential HTN/HLD ? Continue with her home blood pressure medications ? Continue with her home Crestor ? Will monitor make adjustments as necessary ? Will hold her triamterene and hydrochlorothiazide given her lower blood pressures. 4. Hypothyroidism ? Stable ? Continue with Synthroid 5. GERD ? Stable ? Continue with PPI DVT: Eliquis 2.5 mg p.o. twice daily Charges/Coding Visit Charges Inpatient E&M: 13013 Subs Hosp L2
[2024-08-26 11:25] LABS: Bedside Glucose 127 mg/dL (74-106)
[2024-08-26] MEDS: oxyCODONE 5 MG Tablet PO ×2 (11:47→12:48)
--- NOTE | 2024-08-26 13:35 | PCM.DC.SUM ---
Providers Date of Admission: 08/23/24 Primary Care Physician: Dr. Chris Clay MD Consultations 08/23/24 09:27 Consult: Hospitalist Routine Consulting Provider: Mamadou Toscano Reason for Consult: diabetes, and other medical problems EMERGENT Consult: No MD Notified: Yes Date Notified: 08/23/24 Time Notified: 09:29 Method of Notification: Answering Service Reason For Visit: LEFT ANKLE FRACTURE Diagnosis Discharge Diagnosis (1) Trimalleolar fracture of left ankle: Status: Acute Code(s): S82.852A - Displaced trimalleolar fracture of left lower leg, initial encounter for closed fracture Plan s/p ORIF left ankle on 08/24/2024 No weightbearing left foot, keep left foot elevated, keep dressing/splint clean, dry and intact DVT Prophylaxis: Eliquis 2.5mg PO q 12 hours Pain Management: Tylenol, Oxyir, Gabapentin, Baclofen, also she relates to itching so Benadryl has been ordered Discussed with nursing and Dr. Freitas Medications at Discharge Home Medications albuterol sulfate 90 mcg/actuation breath activated powder inhaler (ProAir RespiClick) 2 inh inhalation BID PRN sob 01/16/22 cholecalciferol (vitamin D3) 25 mcg (1,000 unit) tablet 25 mcg PO DAILY 01/16/22 gabapentin 800 mg tablet 800 mg PO BID 01/16/22 levothyroxine 88 mcg tablet 88 mcg PO DAILY thyroid 01/16/22 meclizine 12.5 mg tablet 12.5 mg PO TID PRN dizziness 01/16/22 metformin 500 mg tablet,extended release 24 hr 1,000 mg PO BID 01/16/22 hbzmsrqlemca-msqouvze-mkrsxhu-folic acid 400 mcg-vit K1 20 mcg tablet (One-A-Day Women's 50 Plus) 1 tab PO DAILY 01/16/22 nadolol 20 mg tablet 20 mg PO DAILY 01/16/22 pantoprazole 40 mg tablet,delayed release 40 mg PO BID 01/16/22 potassium chloride 10 mEq tablet,extended release 10 meq PO BID supplement 01/16/22 promethazine 25 mg tablet 25 mg PO Q4H PRN nausea 01/16/22 triamterene 37.5 mg-hydrochlorothiazide 25 mg tablet 1 tab PO DAILY 01/16/22 baclofen 10 mg tablet 20 mg PO BID pain 01/23/22 rosuvastatin 40 mg tablet 5 mg PO DAILY cholesterol 01/23/22 dulaglutide 3 mg/0.5 mL subcutaneous pen injector (Trulicity) 4.5 mg subcut QWEEK diabeties 08/23/24 tiotropium bromide 2.5 mcg/actuation mist for inhalation (Spiriva Respimat) 2 puff inhalation DAILY 08/23/24 apixaban 2.5 mg tablet (Eliquis) 2.5 mg PO Q12H #60 tabs 08/26/24 oxycodone-acetaminophen 5 mg-325 mg tablet (Percocet) 1 - 2 tab PO Q6H PRN pain 3 days #20 tabs 08/26/24 Physical Exam Narrative Left ankle dressing/splint is clean, dry and intact, no strikethrough, CFT < 2 seconds to all toes on left foot, she is able to plantarflex and dorsiflex toes, no evidence of compartment syndrome or DVT, no suspicion for infection, no pain with calf squeeze Const alert, oriented x3 and no apparent distress Weight / BMI Weight Weight: 74.83 kg Body Mass Index (BMI) 25.0 ABG / Lab / Microbiology Data 08/25/24 09:03 08/26/24 05:34 Laboratory: Laboratory Results - last 24 hr 08/25/24 16:39: POC Glucose 104 08/25/24 21:35: POC Glucose 142 H 08/26/24 05:34: Sodium 139, Potassium 3.5, Chloride 104, Carbon Dioxide 30.0, Anion Gap 6, BUN 11, Creatinine 0.80, Estim Creat Clear Calc 70.72, Est GFR (MDRD) Af Amer 92, Est GFR (MDRD) Non-Af 76, BUN/Creatinine Ratio 13.7, Glucose 108 H, Calcium 8.9 08/26/24 06:03: POC Glucose 107 H 08/26/24 11:08: POC Glucose 127 H D/C Instructions Weight Bearing Status: No weight bearing (No weightbearing left foot) Keep extremity elevated above heart level: Left Leg (Keep left foot elevated for at least 50 minutes per hour using pillows) Call your doctor if your incision/area has: Continuous Slow Oozing and Sudden Increased Bleeding Call your doctor if you observe: Fever of 101 or Higher, Coldness, Increased Pain, Shortness of breath, Chest pain, Increased palpitations (irregular heartbeat), Calf discomfort and Uncontrolled pain Cleanse incision/area with: Keep Dressing Clean & Dry Please Follow Up With: Jose Guadalupe Pino DPM When: in 1 week at office, follow up sooner if needed Meaningful Use Info Meaningful Use Meaningful Use Diagnoses (Choose all that apply): None applicable Ischemic Stroke Statin Dosing Therapy Reference: STATIN DOSE THERAPY REFERENCE: * Patients > 75 years receive moderate or high dose statin therapy. * Patients 75 years or YOUNGER should receive HIGH intensity statin dose unless contraindicated. You will be required to document reason for non-treatment if statin daily dose does not meet guidelines. HIGH DOSE STATIN THERAPY DAILY Atorvastatin > than or = to 40 mg Rosuvastatin > than or = to 20 mg Amlodipine + Atorvastatin > than or = to 2.5/40 mg Ezetimibe + Simvastatin 10/80 mg Simvastatin 80mg Discharge Plan Admission Admit Date/Time: 08/23/24 09:27 Attending Provider: Jose Guadalupe Pino Primary Care Provider: Chris Clay Consulting Providers: Mamadou Toscano Discharge Orders/Prescriptions Prescriptions: New oxycodone-acetaminophen [Percocet] 5-325 mg tablet 1 - 2 tab PO Q6H PRN (Reason: pain) 3 Days Qty: 20 0RF Eliquis 2.5 mg tablet 2.5 mg PO Q12H Qty: 60 0RF Continued baclofen 10 mg tablet 20 mg PO BID rosuvastatin 40 mg tablet 5 mg PO DAILY Spiriva Respimat 2.5 mcg/actuation mist 2 puff inhalation DAILY Trulicity 3 mg/0.5 mL pen injector 4.5 mg subcut QWEEK Rx Instructions: takes on Sundays gabapentin 800 mg tablet 800 mg PO BID potassium chloride 10 mEq tablet extended release 10 meq PO BID levothyroxine 88 mcg tablet 88 mcg PO DAILY pantoprazole 40 mg tablet,delayed release (DR/EC) 40 mg PO BID nadolol 20 mg tablet 20 mg PO DAILY metformin 500 mg tablet extended release 24 hr 1,000 mg PO BID promethazine 25 mg tablet 25 mg PO Q4H PRN (Reason: nausea) cholecalciferol (vitamin D3) 25 mcg (1,000 unit) tablet 25 mcg PO DAILY meclizine 12.5 mg tablet 12.5 mg PO TID PRN (Reason: dizziness) ProAir RespiClick 90 mcg/actuation aerosol powdr breath activated 2 inh inhalation BID PRN (Reason: sob) One-A-Day Women's 50 Plus 400-20 mcg tablet 1 tab PO DAILY Held triamterene-hydrochlorothiazid 37.5-25 mg tablet 1 tab PO DAILY Hold Instructions: Resume on 08/29/24. Discontinued tramadol 50 mg tablet 50 mg PO DAILY PRN (Reason: sleep) Referrals / Follow Up: Chris Clay MD [Primary Care Provider] - Disposition Disposition (needs filled in before D/C Order can be placed): Home, Self Care
--- NOTE | 2024-08-26 13:36 | PCM.PROGNOTE ---
Subjective Subjective Patient was seen today for follow up on left ankle. She relates she is feeling a lot better, pain well controlled and much improved. She does not have any new complaints at this time. Objective Data Objective Data Vital Signs: Vital Signs Temp Pulse Resp BP Pulse Ox O2 Del Method 97.2 F L 76 16 97/53 L 94 Room Air 08/26/24 07:45 08/26/24 07:45 08/26/24 07:45 08/26/24 07:45 08/26/24 07:45 08/26/24 07:45 Oxygen Delivery Method Room Air Weight: 74.83 kg Body Mass Index (BMI) 25.0 Intake & Output: Intake and Output for Last 24 Hours 08/24/24 08/25/24 08/26/24 23:59 23:59 23:59 Intake Total 660 / 660 469.25 / 469.25 550 / 550 Output Total 450 / 450 Balance 660 / 460 19.25 / 19.25 550 / 550 Lab / Micro Data 08/25/24 09:03 08/26/24 05:34 Labs: Laboratory Results - last 24 hr 08/25/24 16:39: POC Glucose 104 08/25/24 21:35: POC Glucose 142 H 08/26/24 05:34: Sodium 139, Potassium 3.5, Chloride 104, Carbon Dioxide 30.0, Anion Gap 6, BUN 11, Creatinine 0.80, Estim Creat Clear Calc 70.72, Est GFR (MDRD) Af Amer 92, Est GFR (MDRD) Non-Af 76, BUN/Creatinine Ratio 13.7, Glucose 108 H, Calcium 8.9 08/26/24 06:03: POC Glucose 107 H 08/26/24 11:08: POC Glucose 127 H Physical Exam Narrative Left ankle dressing/splint is clean, dry and intact, no strikethrough, CFT < 2 seconds to all toes on left foot, she is able to plantarflex and dorsiflex toes, no evidence of compartment syndrome or DVT, no suspicion for infection, no pain with calf squeeze Const alert, oriented x3 and no apparent distress Assessment & Plan Assessment/Plan (1) Trimalleolar fracture of left ankle: PLAN: Plan s/p ORIF left ankle on 08/24/2024 No weightbearing left foot, keep left foot elevated, keep dressing/splint clean, dry and intact - new splint was applied yesterday as initial splint was a little long proximally and she had hard time bending her knee - after splint change she noted it felt a lot better DVT Prophylaxis: Eliquis 2.5mg PO q 12 hours, also hip and knee ROM Pain Management: will plan for d/c with Percocet Also of note: Patient is unable to access bathroom safely and requires a 3 in 1 commode
--- NOTE | 2024-08-26 13:46 | CASEMGMT ---
Addendum entered by Inez Mckeon 08/26/24 15:42: Rollator and BSC delivered to pt room per [facility]. Addendum entered by Inez Mckeon 08/26/24 15:26: Received notification from [facility] that they do not provide the cast sleeve or leg elevation pillow. They need to speak to pt for the fee for the rollator and have left her a message. [facility] is requesting a call back. TRIP [place]ROE into pt room, pt is aware that of the above. Provided pt with the phone number for [facility]. She will call. Original Note: TRIP [place]ROE into pt room to confim all DME was included that she requested. Rx signed and referral sent to [facility] for DME with request of cost of items that may not be covered. Requested items were rollator, cast sleeve, BSC, leg rest with elevation. Will await response.
[2024-08-26 14:02] VITALS: BP 105/61; PULSE 80; RESP 18; TEMP 36.9; O2SAT 95
--- NOTE | 2024-08-26 14:47 | CHAPLAIN ---
Type of Pastoral Visit _x__ Initial Visit ___ Follow-up Visit ___ On-call Visit ___ General Patient Visit ___ Spiritual Assessment ___ Family Conference ___ Bereavement ___ Rapid Response ___ Code Blue ___ Other (describe below) Pastoral Care Referral From _x__ Patient ___ Family ___ Nurse ___ Physician ___ Scouring Pads Supervisor ___ Event Promoter ___ Other (describe below) Sacrament/Intervention _x__ Active listening ___ Anointing ___ Voodoo ___ Bereavement ___ Communion ___ Zenia exploration ___ ___ Life review ___ Prayer ___ Reconciliation ___ Sacrament of Sick ___ Supportive presence ___ Wedding ___ Other (describe below) Pastoral Comments patient is resting in bed and watching a movie; pt gives her story on the fall and broken ankle; pt has robledo in the room and acknowledges good support; pt says that she is doing fine and has no concerns; pt expects to be discharged today
== END 2024-08-26 15:55 | disposition home or self-care (01) | DRG 494 ==
PROVIDERS: Anesthesiology; Family Medicine; Admitting Provider Podiatrist; PCP Family Medicine; Visit Provider Podiatrist
PROC: 0SSG04Z Reposition Left Ankle Joint with Internal Fixation Device, Open Approach (ICD-10-PCS; principal; 2024-08-24 12:40)
DX: S82.852A Displaced trimalleolar fracture of left lower leg, initial encounter for closed fracture (principal); E03.9 Hypothyroidism, unspecified; E11.9 Type 2 diabetes mellitus without complications; J44.9 Chronic obstructive pulmonary disease, unspecified; I10 Essential (primary) hypertension; E78.00 Pure hypercholesterolemia, unspecified; K21.9 Gastro-esophageal reflux disease without esophagitis; W19.XXXA Unspecified fall, initial encounter; G89.29 Other chronic pain; Z79.01 Long term (current) use of anticoagulants; Z79.82 Long term (current) use of aspirin; Z79.84 Long term (current) use of oral hypoglycemic drugs; Z79.85 Long-term (current) use of injectable non-insulin antidiabetic drugs; Z79.890 Hormone replacement therapy; Z79.899 Other long term (current) drug therapy
CPT/HCPCS: 36415; 73590; 73610; 73700; 76000; 76377; 80048; 80053; 82306; 82962; 83036; 84443; 85025; 90662; 93005; 93306; 94668; 97110; 97162; 97166; 97530; 97535; 97802; C1713; J7120; A4216; J2405

== ENCOUNTER → 2024-09-02 | Outpatient (CLI) | payer MEDICARE, SELFPAY ==
--- NOTE | 2024-09-02 08:51 | VDLE_ITS ---
Reason For Study: LLE PAIN RIGHT LEFT CFV is compressible, spontaneous, phasic, GSV is normal. competent and demonstrates normal CFV is compressible, spontaneous, phasic, augmentation. competent, and demonstrates normal Procedure augmentation. This is a venous duplex using B-mode, color FV is compressible, spontaneous, phasic, flow and spectral Doppler. competent and demonstrates normal Exam performed in department. augmentation. The exam was diagnostic. POP V is compressible, spontaneous, phasic, A preliminary report was called and/or faxed competent and demonstrates normal to Jennifer @ [facility] @ augmentation. [phone] @ 09:30 am. T/P Trunk is compressible. PTV is compressible. LT PerV is compressible. ANT. Tib. V is normal. VL/Venous Duplex US, Unilateral Interpretation Summary Deep veins of the left lower extremity are patent and compressible segmentally. There is no evidence of left lower extremity deep vein thrombosis. Valvular competence appears intac t within the proximal deep venous system on the left . The left great saphenous vein appears patent a nd compressible segmentally. The right common femoral vein is patent and compressible . Ordering Physician: Jose Guadalupe Pino Referring Physician: Chris Clay Performed By: Flaquita Mata RDCS, RVT
== END | disposition home or self-care (01) ==
LOC: CVS 08:48
PROVIDERS: PCP Family Medicine; Referring Provider Podiatrist; Visit Provider Podiatrist
DX: M79.662 Pain in left lower leg (principal)
CPT/HCPCS: 93971

== ENCOUNTER → 2024-09-18 | Outpatient (CLI) | payer MEDICARE, SELFPAY ==
--- NOTE | 2024-09-18 08:50 | MRI_ITS ---
EXAM: MR LEFT LOWER EXTREMITY WITHOUT INTRAVENOUS CONTRAST, TIBIA AND FIBULA CLINICAL INDICATION: CONTUSION LEFT LEG TECHNIQUE: Multiplanar and multisequence MR images of the left tibia and fibula without intravenous contrast. COMPARISON: Ankle and leg radiographs, 08/24 and 08/23/2024 respectively. FINDINGS: BONES/JOINTS: As previously demonstrated, lateral plate-screw fixation of the fibula is demonstrated with associated susceptibility artifact. Additional hardware associated with tightrope fixation of the high ankle syndesmosis. Previously identified medial malleolus fracture not well seen. No unforeseen fracture. No obvious joint effusion. No additional evidence of marrow space signal abnormality is identified. MUSCLES: No significant abnormality. No edema or myositis. OTHER SOFT TISSUES: Mild soft tissue edema in the distal leg extending into the ankle. MRI/Lower Ext/No Jt/w/o IMPRESSION: 1. Mild soft tissue edema in the distal leg extending into the ankle. This is nonspecific and may be related to operative change or developing cellulitis. 2. As previously demonstrated, lateral plate-screw fixation of the fibula is demonstrated with associated susceptibility artifact. Additional hardware associated with tightrope fixation of the high ankle syndesmosis. Electronically Signed: Dom Pillai DO at 14:03 EST ,
== END | disposition home or self-care (01) ==
LOC: MRI 08:39
PROVIDERS: PCP Family Medicine; Referring Provider Podiatrist; Visit Provider Podiatrist
DX: S80.12XD Contusion of left lower leg, subsequent encounter (principal); X58.XXXD Exposure to other specified factors, subsequent encounter
CPT/HCPCS: 73718

== ENCOUNTER → 2024-11-04 | Outpatient (CLI) | payer MEDICARE, SELFPAY ==
--- NOTE | 2024-11-04 12:18 | STRESSREP ---
Stress Test Report Pharmacologic myocardial perfusion stress test. 64-year-old lady with a history of syncope Resting EKG demonstrates sinus rhythm with a rate of 69 bpm. Resting blood pressure is 128/80 mmHg. 0.4 mg of regadenoson was infused per usual protocol followed by rapid intravenous saline flush injection. Continuous EKG monitoring was performed. The maximum heart rate was 105 bpm which was 67% of max impacted heart rate the maximum workload was 1 metabolic equivalent. At rest there were no ST or T wave changes noted to suggest ischemia and at peak infusion nonspecific ST changes were noted which did not meet the criteria for ischemia. No clinical angina is noted. The final blood pressure was 120/78 mmHg. Myocardial perfusion protocol. 11.8 mCi of technetium 99m sestamibi was injected at rest. 0.4 mg of regadenoson was infused per usual protocol. At peak infusion 34.1 mCi of technetium 99m sestamibi was injected stress images were obtained stress and rest images were reconstructed and compared in the short axis vertical long and horizontal long axis. Gated images were also obtained. Perfusion SPECT analysis: Review of the stress images demonstrate normal uptake of tracer noted in all areas of the myocardium except for a medium size area in the anterior septal wall with reduced perfusion. The resting images similar demonstrated normal uptake of tracer noted in all areas of the myocardium. The above is suggestive of a medium sized anteroseptal ischemic zone. Gated SPECT analysis: The gated ejection fraction is 57%. Conclusion: Abnormal pharmacologic myocardial perfusion stress test. Preserved ejection fraction. Anterior septal ischemia present.
== END | disposition home or self-care (01) ==
LOC: CVS 06:49
PROVIDERS: PCP Family Medicine; Referring Provider Physician Assistant Medical; Visit Provider Physician Assistant Medical
DX: Z01.810 Encounter for preprocedural cardiovascular examination (principal); R55 Syncope and collapse; I47.10 Supraventricular tachycardia, unspecified; I10 Essential (primary) hypertension; R93.1 Abnormal findings on diagnostic imaging of heart and coronary circulation; E78.5 Hyperlipidemia, unspecified
CPT/HCPCS: 78452; 93017; A9500; A4216; J2785

== ENCOUNTER 2024-11-15 07:22 | Day surgery (SDC) | payer MEDICARE, SELFPAY ==
[2024-11-11 09:21] LABS: Absolute Lymphocyte Count 1.83 X10^3/uL (0.83-4.51); Absolute Neutrophil Count 3.9 X10^3/uL (2.0-7.7); Basophil# 0.07 X10^3/uL; Eosinophil# 0.25 X10^3/uL; Eosinophils% 3.7 % (0-5); Hemoglobin 12.4 g/dL (12.0-15.0); Lymphocyte # 1.83 X10^3/ul (0.83-4.51); Mean Corp Hgb Conc 31.8 g/dL (32-36); Mean Corpuscular Hgb 30.8 pg (27.0-32.0); Mean Corpuscular Volume 96.8 fL (81-99); Mean Platelet Vol. 9.3 fl (6.2-12.0); Monocyte# 0.69 X10^3/uL; Monocyte% 10.2 % (0-10); NRBC Flagged by Analyzer 0 % (0-5); Neutrophil # 3.92 X10^3/uL (2.7-7.7); Neutrophil % 57.8 % (47-70); Platelet Count 278 K/mm3 (150-450); RBC Distribution Width CV 13.6 % (11.6-14.6); Red Blood Count 4.03 M/mm3 (4.2-5.4); White Blood Count 6.8 K/mm3 (4.4-11.0)
[2024-11-11 10:28] LABS: Anion Gap 5 (5-15); BUN 18 mg/dL (7-18); Calcium,Total 9.6 mg/dL (8.5-10.1); Chloride 105 mmol/L (98-107); EST Glomerular Filtration Rate 67 mL/min (>60); Est Glom Filt Rate - Afr Amer 81 mL/min (>60); Glucose 189 mg/dL (74-106); Potassium 3.9 mmol/L (3.5-5.1); Sodium Level 140 mmol/L (136-145)
--- NOTE | 2024-11-11 11:07 | HP.PCM_ITS ---
History and Physical Madison Garcia is a 64 year old female that presents here today for an updated history and physical for a diagnostic heart cath. hospital follow up. She also has a history of hypertension and diabetes mellitus. She had been noted to be rather anemic with low iron and her hemoglobin of less than 10. She has been on nadolol for years for migraine. As part of her work-up she had an echocardiogram as well as a Zio patch ordered. Echocardiogram demonstrated an ejection fraction of 60%, stage I diastolic dysfunction, mild aortic sclerosis and no aortic regurgitation. She also had a Zio patch performed which demonstrated periods of sinus tachycardia as well as narrow complex tachycardia which appeared to be more consistent with an ectopic atrial tachycardia with a rate of approximately 148 bpm. She says that these have reduced significantly since her hemoglobin improved. Patient presented to [facility] on 08/17/[facility]24 with a syncopal event. Echocardiogram demonstrated a preserved ejection fraction. She did require surgery on her ankle fracture. Prior to her passing out she was walking earlier that day [place]. She did need to use her inhaler few times that day. When she got home, she was sitting and then stood up and passed out. She does not recall any prodromal symptoms. Most days she feels like she is having a flip flop in her chest. These are not persistent but can last intermittently for hours. She does have issues with dizziness. She is active, she does not have any problems with walking. Her Bp has been on the lower side in the hospital, she has been holding her diuretic. Patient had an echocardiogram in August which demonstrated an ejection fraction of 60% with stage I diastolic dysfunction. RVSP 26 mmHg. Patient underwent a coronary calcium score at . This was noted to be elevated. She underwent a stress test which demonstrated a preserved ejection fraction with anteroseptal ischemia. She will be undergoing a diagnostic heart catheterization because of this. [facility] Medical History (Updated 09/13/24 @ 11:39 by Missy MAGAÑA, PA) Post-menopausal Syncope High cholesterol History of stress test Cancer Hypothyroidism Diabetes Chronic pain Osteoporosis Kidney stones GI bleed GERD (gastroesophageal reflux disease) COPD (chronic obstructive pulmonary disease) Irregular heart beat Migraines Hypopotassemia Hypothyroidism SVT (supraventricular tachycardia) Essential hypertension Hyperlipidemia Type 2 diabetes mellitus without complication COPD (chronic obstructive pulmonary disease) History of malignant neoplasm of right breast Meniere disease History of migraine History of pleurisy Tietze's disease History of Lindsey thyroiditis Rosacea DDD (degenerative disc disease), lumbar Asthma Surgical History History of lobectomy of thyroid (01/06/08) History of partial mastectomy of right breast (02/08/03) History of lung surgery (1975) History of tubal ligation History of dilatation and curettage History of tonsillectomy (1981) History of hand surgery History of esophagogastroduodenoscopy History of bunionectomy History of colonoscopy Family History Mother Heart disease CVA (cerebral vascular accident) Hypertension Cancer Lung cancer with mets to brain Father Heart disease Cancer skin Hypertension Grandfather Diabetes Grandmother Cancer Ovarian Social History Smoking Status: Never smoker alcohol intake: never substance use type: does not use ROS Const Const: Negative for fatigue, weakness, fever(s) or headache(s) Eyes Eyes: Negative for blind spots, loss of peripheral vision or transient loss of vision ENT ENT: Positive for dizziness; Negative for headache(s), tinnitus, Nosebleed/epistaxis or balance problems Cardio Chest Pain: No Palpitations: Yes Edema: None Muscle aches with walking: None Resp Respiratory: Negative for SOB with activity, SOB at rest, SOB orthopnea\SOB lying down or Cough GI GI: Negative nausea, vomiting, heartburn or vomiting blood/hematemesis : Negative for hematuria Musc Musc: Negative for muscle aches/ myalgia, muscle weakness, joint pain or balance problems Neuro Neuro: Positive for dizziness and syncope; Negative for lightheadedness, near syncope, orthostatic symptoms, headache(s) or weakness Sarkis Hematologic/Lymphatic: Negative for easy bleeding Endo Endo: Negative for fatigue Cardiology Exam Const Appearance: cooperative, healthy appearing, comfortable, no acute distress and well developed Orientation: alert, awake and oriented x3 Head Head: normal to inspection Ears: hearing grossly normal bilaterally Nose: external nose normal Face and Sinus: face symmetric Mouth: oral mucosae normal, lip normal and moist mucous membranes Eyes General: appearance normal, both eyes and all related structures Eyelids: eyelids normal Conjunctivae: conjunctivae normal Pupils: PERRL EOM: EOM intact bilaterally Neck Neck: normal visual inspection and trachea midline; Negative no JVD Carotids: Negative bruit Chest Chest inspection: normal inspection of the chest Auscultation: Bilateral: Clear to Auscultation Cardio Palpation: normal PMI Rate: regular rate Rhythm: regular rhythm Heart sounds: S1 normal and S2 normal; Negative rub, gallop or murmur GI GI: soft, no hepatosplenomegaly and bowel sounds present Neuro General: patient alert, patient awake, patient oriented x3 and CN's II-XI intact bilaterally Extremities Pulses: Normal: Right Posterior Tibial Pulse, Right Radial Pulse and Left Radial Pulse Lower Extremity Edema: None: Bilateral left foot in a cast Psych Psychological: normal affect Supplemental Info Supplemental Information ZIO PATCH 10/21/2021 Preliminary Findings Final Interpretation Patient had a min HR of 58 bpm, max HR of 146 bpm, and avg HR of 76 bpm. Predominant underlying rhythm was Sinus Rhythm. 273 Supraventricular Tachycardia runs occurred, the run with the fastest interval lasting 9 beats with a max rate of 146 bpm, the longest lasting 27.1 secs with an avg rate of 130 bpm. Supraventricular Tachycardia was detected within +/- 45 seconds of symptomatic patient event(s). Isolated SVEs were rare (<1.0%, 256), SVE Couplets were rare (<1.0%, 64), and SVE Triplets were rare (<1.0%, 137). Isolated VEs were rare (<1.0%), VE Couplets were rare (<1.0%), and no VE Triplets were present HEART RATE Overall Max 146 bpm 12:03pm, 10/13 Min 58 bpm 03:21am, 10/09 Avg 76 bpm Sinus Max 116 bpm 02:40pm, 10/20 Min 58 bpm 03:21am, 10/09 Avg 76 bpm PATIENT EVENTS Total Triggers: 8 Total Diaries: 0 Findings within ? 45 sec of triggered events or diary entries: Range Trigger Diary SVT 98-138 bpm Sinus 74-92 bpm Echocardiogram 08/2024: Normal LV size. Left ventricular systolic function is normal. The left ventricular ejection fraction is 60 %. Stage 1 diastolic dysfunction. Pulmonary artery systolic pressure is 26 mmHg. The global longitudinal strain is borderline abnormal. The global longitudinal strain = -15.9% (abnormal). ECHOCARDIOGRAM 09/20/2021 CONCLUSIONS: - Technically difficult exam due to body habitus. - Exam indication: Palpitations - The left ventricle is normal in size. Left ventricular systolic function is normal. EF = 60 ? 5% (visual est.) Grade I left ventricular diastolic dysfunction. - The right ventricle is normal in size. Right ventricular systolic function is normal. - Definity contrast could not be administered d/t unavailability of staff. ECHOCARDIOGRAM 02/13/2012 CONCLUSIONS: - The left ventricle is normal in size. There is mild concentric left ventricular hypertrophy. Left ventricular systolic function is normal. EF = 60 ? 5% (visual est.) Stage 1 diastolic dysfunction. - The right ventricle is normal in size. Right ventricular systolic function is normal. - Trivial-1+ MR. No evidence of mitral valve prolapse. - Trivial TR. RVSP 25mmHg. Normal pulmonary pressures. - Mild aortic sclerosis with no AI. Assessment & Plan Assessment/Plan (1) Elevated coronary artery calcium score: (2) Abnormal stress test: (3) Syncope: (4) Essential hypertension: (5) Hyperlipidemia: PLAN: Plan Patient will undergo a diagnostic heart catheterization. Based on findings we will decide next plan of care. Patient will follow-up afterwards in office.
[2024-11-12 08:03] VITALS: BMI 24.9
--- NOTE | 2024-11-15 09:42 | CL.D_ITS ---
Patient Name: CAT POSEY Study Date: 11/15/2024 Performing: Inocencio Downs MD Ht: 68.11 inches 173 cm : 1960 Wt: 164 lbs 74.39 kg Age: 64 Gender: female BSA: 1.88 PROCEDURE(S) PERFORMED DC01-(57340)LHC/COR/LV CLINICAL PROFILE AND INDICATIONS Indications: Suspected CAD Heart Failure: None Stress/Imaging Date: 11/04/24Stress Test with SPECT MPI: Positive Low Risk CAD Presentations: Symptom unlikely to be ischemic. CONCLUSIONS Non obstructive coronary arteries Coronary calcification present RECOMMENDATIONS Medical therapy DESCRIPTION OF PROCEDURE The patient arrived to the procedure lab. The risks and benefits of the procedure as well as a full description of our services here and current unavailability of surgical backup were fully explained to the patient and/or their significant other prior to the catheterization. The Timeout was completed, verifying the correct patient and procedure. The patient's procedural site was prepped and draped in the usual fashion. Local anesthetic was given subcutaneously to right radial region with Lidocaine 2%. Using a modified Seldinger technique, arterial access was obtained via the right radial artery, a 6Fr sheath was inserted. Left Coronary Artery selective angiography was performed in multiple views using a 5 Fr. 4.0 [place] catheter. Right Coronary Artery selective angiography was then performed in multiple views using a 5 Fr. 4.0 [place] catheter. Left Ventriculography was performed in [place] projection using a 5 Fr. [place] catheter. LV to AO pullback pressures were then recorded.The arterial sheath was pulled and a TR Band was applied for hemostasis 10 ml of air CORONARY ANGIOGRAPHY DOMINANCE: Right Dominant LEFT HEART ASSESSMENT Left Ventricular Ejection Fraction: by LV Gram 60 % Normal LV wall motion Normal Left Ventricular systolic function LEFT MAIN: Mild calcification, No significant disease noted LEFT ANTERIOR DESCENDING ARTERY: Moderate calcification, Mild to moderate disease is noted in the proximal to mid segment encompassing the origin of the first diagonal branch with a 40% stenosis. The mid to distal vessel appears to have mild luminal irregularities less than 30%. CIRCUMFLEX ARTERY: Moderate calcification, Mild luminal irregularities RIGHT CORONARY ARTERY: Moderate calcification Mild luminal irregularities less than 30% COMPLICATIONS No Complications PROCEDURE MEDICATIONS Versed 1 mg IV Fentanyl 50 mcg IV Versed 1 mg IV Oxygen: 2 L/min via nasal cannula Aspirin (325mg) 1 Tabs PO @ 11/15/2024 07:51:15 Heparin given IA 11/15/2024 09:20:03 Verapamil 2.5mg, Ntg 100mcgs, 3000 units of Heparin given IA 11/15/2024 09:20:03 SUMMARY OF HEMODYNAMIC DATA Time AIR REST AO 168/101 (130) SA 09:22:14 AO 151/90 (118) 09:23:41 LV 158/8, 17 09:27:01 LV 159/10, 18 09:27:09 LV 161/25, 28 09:27:32 LV 155/7, 20 09:27:40 LVp 151/9, 18 09:27:46 AOp 155/71 (105) 09:27:53 ECG 09:43:02 ECG 09:43:16 09:43:16 Signed By Inocencio Downs MD On 11/15/2024 09:43:19 Signed By Inocencio Downs MD On 11/15/2024 09:42:28 Inocencio Downs MD
== END 2024-11-15 11:00 | disposition home or self-care (01) ==
PROVIDERS: Physician Assistant Medical; PCP Family Medicine; Referring Provider Internal Medicine Cardiovascular Disease; Visit Provider Internal Medicine Cardiovascular Disease
DX: I25.10 Atherosclerotic heart disease of native coronary artery without angina pectoris (principal); J44.9 Chronic obstructive pulmonary disease, unspecified; E11.9 Type 2 diabetes mellitus without complications; R55 Syncope and collapse; R94.39 Abnormal result of other cardiovascular function study; I10 Essential (primary) hypertension; E78.00 Pure hypercholesterolemia, unspecified; K21.9 Gastro-esophageal reflux disease without esophagitis
CPT/HCPCS: 36415; 80048; 85025; 93458; 99152; 99153; Q9967; C1769; C1894

== ENCOUNTER → 2024-12-13 | Outpatient (CLI) | payer MEDICARE, SELFPAY ==
--- NOTE | 2024-12-13 10:47 | CDU_ITS ---
Reason For Study: Syncope Rt. Velocities/BP Lt. Velocities/BP Prox CCA 65.5/15.4 cm/sec. Prox CCA 68.3/16.3 cm/sec. Mid CCA 55.1/17.3 cm/sec. Mid CCA 57.9/15.4 cm/sec. Dist CCA 50.4/15.4 cm/sec. Dist CCA 47.5/15.4 cm/sec. Prox ICA 34.4/11.6 cm/sec. Prox ICA 26.9/10.2 cm/sec. Mid ICA 53.6/21.6 cm/sec. Mid ICA 50.7/18.7 cm/sec. Dist ICA 30.8/8.5 cm/sec. Dist ICA 48.3/20.0 cm/sec. Rt. ICA/CCA = 1.0. Lt. ICA/CCA = 0.9. Prox ECA 53.5/9.0 cm/sec. Prox ECA 45.0/6.6 cm/sec. Rt. Vert. 28.7/8.8 cm/sec. Lt. Vert. 27.3/9.5 cm/sec. Right Extracranial There is intimal thickening but no significant atherosclerotic plaque noted in the right common carotid artery. There is intimal thickening but no significant atherosclerotic plaque noted in the right internal carotid artery. There is intimal thickening but no significant atherosclerotic plaque noted in the right external carotid artery. Antegrade flow is noted in the right vertebral artery. Left Extracranial There is intimal thickening but no significant atherosclerotic plaque noted in the left common carotid artery. There is intimal thickening but no significant atherosclerotic plaque noted in the left internal carotid artery. There is intimal thickening but no significant atherosclerotic plaque noted in the left external carotid artery. Antegrade flow is noted in the left vertebral artery. Procedure Carotid Duplex [id number]. This is a Carotid Duplex examination using B-mode, color flow and specral Doppler. Exam performed in department. VL/Carotid Duplex Ultrasound Interpretation Summary Normal right extracranial internal carotid. Normal left extracranial internal carotid. Patent and antegrade vertebrals bilaterally. Ordering Physician: Missy Haynes Referring Physician: Missy Haynes Performed By: Wiliam Steele RVT and Student
== END | disposition home or self-care (01) ==
LOC: CVS 10:45
PROVIDERS: PCP Family Medicine; Referring Provider Physician Assistant Medical; Visit Provider Physician Assistant Medical
DX: R55 Syncope and collapse (principal)
CPT/HCPCS: 93880

== ENCOUNTER → 2024-12-17 | Outpatient (CLI) | payer MEDICARE, SELFPAY ==
--- NOTE | 2024-12-17 10:55 | VDLE_ITS ---
Reason For Study: Pain BLE RIGHT LEFT GSV is normal. GSV is normal. CFV is compressible, spontaneous, phasic, CFV is compressible, spontaneous, phasic, competent and demonstrates normal competent, and demonstrates normal augmentation. augmentation. FV is compressible, spontaneous, phasic, FV is compressible, spontaneous, phasic, competent and demonstrates normal competent and demonstrates normal augmentation. augmentation. POP V is compressible, spontaneous, phasic, POP V is compressible, spontaneous, phasic, competent and demonstrates normal competent and demonstrates normal augmentation. augmentation. T/P Trunk is compressible. T/P Trunk is compressible. PTV is compressible. PTV is compressible. RT PerV is compressible. LT PerV is compressible. Procedure This is a venous duplex using B-mode, color flow and spectral Doppler. Exam performed in department. A preliminary report was called and/or faxed to Dr. Pino. VL/Venous Duplex US - [place] Extrem Interpretation Summary Deep veins of the lower extremities are bilaterally patent and compressible seg mentally. There is no evidence of deep vein thrombosis on either side. Valvular competence appears in tact within the proximal deep venous systems bilaterally. The great saphenous veins appear bila terally patent and compressible segmentally. Ordering Physician: Jose Guadalupe Pino Referring Physician: Chris Clay Performed By: Heaven Mobley, IRWIN, RVT
== END | disposition home or self-care (01) ==
LOC: CVS 10:53
PROVIDERS: PCP Family Medicine; Referring Provider Podiatrist; Visit Provider Podiatrist
DX: M79.662 Pain in left lower leg (principal); M79.661 Pain in right lower leg
CPT/HCPCS: 93970

== ENCOUNTER 2025-03-21 09:31 | Day surgery (SDC) | payer MEDICARE, SELFPAY ==
[2025-03-18 07:39] VITALS: BMI 26.4
--- NOTE | 2025-03-21 11:05 | CL.IE_ITS ---
Patient: CAT POSEY Study Date: 03/21/2025 Performing: Inocencio Downs MD : 1960 Age: 64 Gender: female PROCEDURES PERFORMED LP01-([id number])INSERTION OF LOOP RECORDER INDICATIONS Syncope PROCEDURE DETAILS The patient was brought to the Catheterization Lab in the postabsorptive nonsedated state. Informed consent was obtained prior to the procedure. Local anesthetic was given subcutaneously to the left upper chest area with Lidocaine 2%. Steri-strips applied to Lt chest area. The patient tolerated the procedure well. 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 Device Recommendations: Follow up with Primary Care Physician PROCEDURE MEDICATIONS Fentanyl 50 mcg IV Versed 1 mg IV Oxygen: 2 L/min via nasal cannula Antibiotic given in appropriate timeframe. Ancef 2 Gm IV @ 03/21/2025 10:54:47 Signed By Inocencio Downs MD On 03/21/2025 11:04:16 Inocencio Downs MD
== END 2025-03-21 12:20 | disposition home or self-care (01) ==
PROVIDERS: PCP Family Medicine; Referring Provider Internal Medicine Cardiovascular Disease; Visit Provider Internal Medicine Cardiovascular Disease
DX: Z45.09 Encounter for adjustment and management of other cardiac device (principal); J44.9 Chronic obstructive pulmonary disease, unspecified; E11.9 Type 2 diabetes mellitus without complications; R55 Syncope and collapse; G43.909 Migraine, unspecified, not intractable, without status migrainosus; I10 Essential (primary) hypertension; D50.9 Iron deficiency anemia, unspecified; Z79.899 Other long term (current) drug therapy; I25.10 Atherosclerotic heart disease of native coronary artery without angina pectoris; I47.10 Supraventricular tachycardia, unspecified; E78.00 Pure hypercholesterolemia, unspecified; K21.9 Gastro-esophageal reflux disease without esophagitis
CPT/HCPCS: 33285; 99152